=== PATIENT | female | born 1960 | race American Indian/Alaskan Native ===

== ENCOUNTER 2016-07-25 03:16 | Emergency (ER) | payer BC ==
[2016-07-25 05:23] LABS: Alanine Aminotransferase 13 units/L (7-56); Albumin 3.6 g/dL (3.9-5); Albumin/Globulin Ratio 0.8 %; Alkaline Phosphatase 71 units/L (35-129); Bilirubin,Total 0.2 mg/dL (0.1-1.2); Blood Urea Nitrogen 15 mg/dL (7-17); Carbon Dioxide 26 mmol/L (22-30); Chloride 101.4 mmol/L (98-107); Glucose 124 mg/dL (65-100); Potassium 3.6 mmol/L (3.6-5.0); Sodium 140 mmol/L (137-145); Total Protein 8.4 g/dL (6.3-8.2)
[2016-07-25 05:28] LABS: Anion Gap 16 mmol/L
--- NOTE | 2016-07-25 05:28 | Cat Scan Report ---
FINAL REPORT PROCEDURE: CT HEAD/BRAIN WO CON TECHNIQUE: Computerized tomography of the head was performed without contrast material. HISTORY: new onset seizure COMPARISON: 08/21/2011 FINDINGS: Skull and scalp: Normal. Paranasal sinuses: Normal. Ventricles and subarachnoid spaces: There is mild left intraventricular hemorrhage in the posterior horn of the lateral ventricle.. Cerebrum: Acute hemorrhage identified in the medial left temporal lobe, this region measures 18 x 17 millimeters. No midline displacement or mass effect at this time. No other evidence of acute hemorrhage. There are old lacunar infarctions of the basal ganglia regions bilaterally. Mild atrophy is noted. The basilar cisterns are maintained.. Cerebellum and brainstem: No evidence of hemorrhage, acute infarction or mass. Vasculature: Normal. Comments: None. IMPRESSION: Acute hemorrhage involving the medial left temporal lobe, there is intraventricular hemorrhage involving the posterior aspect of the left lateral ventricle. No midline displacement or mass effect at this time. Mild atrophy is noted. Old lacunar infarctions of both basal ganglia are identified. The above critical results are discussed with the patient's ER physician Dr. Mckay at the time of dictation 0424 central standard time on 07/25/2016
--- NOTE | 2016-07-25 05:33 | Emergency Department Report ---
ED Seizure HPI - General Chief Complaint: Seizure Stated Complaint: POSSIBLE SEIZURE Time Seen by Provider: 07/25/16 05:22 Source: patient, family Mode of arrival: Stretcher Limitations: Altered Mental Status - History of Present Illness Initial Comments: 55-year-old female presents to the emergency department via EMS for evaluation of possible seizure. Per the patient's , he was awakened at approximately 3 AM the patient shaking in the bed. Patient was somewhat confused after this. She does not know what happened. At this time, the patient denies any symptoms. She states she feels a little tired. There are no other complaints. MD Complaint: possible seizure -: Sudden, During the night Description of Episode: tonic-clonic movement Witnessed:: Yes Trauma: No Seizure History: none Place: home Possible Precipitating Event: none Associated Symptoms: denies other symptoms Treatments Prior to Arrival: none - Related Data Home Medications Medication Instructions Recorded Confirmed Last Taken No Known Home Medications [No 07/25/16 07/25/16 Unknown Reported Home Medications] Allergies Allergy/AdvReac Type Severity Reaction Status Date / Time Penicillins Allergy Unknown Verified 07/25/16 05:39 ED Review of Systems ROS: Stated complaint: POSSIBLE SEIZURE Other details as noted in HPI Comment: All other systems reviewed and negative Neurological: as per HPI (possible seizure) ED Past Medical Hx - Past Medical History Previous Medical History?: Yes Hx Heart Attack/AMI: Yes Additional medical history: lupus (not sure) - Surgical History Past Surgical History?: No - Family History Family history: no significant - Social History Smoking Status: Current Every Day Smoker Substance Use Type: Alcohol - Medications Home Medications: Home Medications Medication Instructions Recorded Confirmed Last Taken Type No Known Home Medications [No 07/25/16 07/25/16 Unknown History Reported Home Medications] ED Physical Exam - General Limitations: Altered Mental Status General appearance: in no apparent distress, lethargic - Head Head exam: Present: atraumatic, normocephalic - Eye Eye exam: Present: normal appearance, PERRL, EOMI - ENT ENT exam: Present: normal exam, normal orophraynx, mucous membranes moist - Neck Neck exam: Present: normal inspection, full ROM. Absent: tenderness - Respiratory Respiratory exam: Present: normal lung sounds bilaterally. Absent: respiratory distress - Cardiovascular Cardiovascular Exam: Present: regular rate, normal rhythm, normal heart sounds - GI/Abdominal GI/Abdominal exam: Present: soft, normal bowel sounds. Absent: distended, tenderness - Extremities Exam Extremities exam: Present: normal inspection, full ROM. Absent: tenderness - Back Exam Back exam: Present: normal inspection, full ROM. Absent: tenderness - Neurological Exam Neurological exam: Present: alert, oriented X3. Absent: motor sensory deficit - Skin Skin exam: Present: warm, dry, intact ED Course Vital Signs 07/25/16 07/25/16 03:45 05:31 Temperature 98.1 F Pulse Rate 100 H Respiratory 22 22 Rate Blood Pressure 156/100 Blood Pressure 156/100 [Left] O2 Sat by Pulse 100 98 Oximetry - Consultations Consultation #1: 07/25/16 05:51 I have spoken with Dr. Link, neurology at [facility]. He states that he does not have any beds at this time and suggest calling [facility]. Consultation #2: 07/25/16 06:00 I have spoken with Dr. Oliveira, neuro portrait painter at [facility]. Patient has been accepted in transfer. Patient is being given a loading dose of IV Keppra. ED Medical Decision Making - Lab Data Result diagrams: 07/25/16 04:47 07/25/16 04:47 - EKG Data -: EKG Interpreted by [facility] EKG shows normal: sinus rhythm, axis, ST-T waves Rate: normal - EKG Data When compared to previous EKG there are: no significant change Interpretation: unchanged when compared t (09/08/2011), LVH, other (first degree AV block) - Radiology Data Radiology results: report reviewed, image reviewed CT of the brain shows intraparenchymal hemorrhage in the medial aspect of the left temporal lobe with extension into the posterior aspect of the left lateral ventricle. This was discussed with the radiologist. - Differential Diagnosis new-onset seizure, occult infection, electrolyte abnormality, ICH Critical care attestation.: If time is entered above; I have spent that time in minutes in the direct care of this critically ill patient, excluding procedure time. ED Disposition Clinical Impression: Intraparenchymal hemorrhage of brain Disposition: DC/TX SHORT-TERM GEN HOSP INPT Is pt being admited?: No Condition: Stable Time of Disposition: 06:01
[2016-07-25 05:38] LABS: Basophils % (Auto) 0.3 % (0.0-1.8); Eosinophils % (Auto) 0.1 % (0.0-4.3); Hematocrit 37.1 % (30.3-42.9); Hemoglobin 12.5 gm/dl (10.1-14.3); Mean Corpuscular HGB Conc 34 % (30-34); Mean Corpuscular Hemoglobin 31 pg (28-32); Mean Corpuscular Volume 93 fl (79-97); Platelet Count 215 K/mm3 (140-440); Red Blood Count 3.98 M/mm3 (3.65-5.03); Red Cell Distribution Width 12.8 % (13.2-15.2); White Blood Count 7.9 K/mm3 (4.5-11.0)
[2016-07-25] MEDS ORDERED: KEPPRA 1,000 MG/NS 0.75% 100ML 100 ML IV ONE (06:02)
[2016-07-25 06:13] LABS: INR 0.98 (0.87-1.13)
[2016-07-25 06:14] LABS: Partial Thromboplastin Time 23.6 Sec. (24.2-36.6)
[2016-07-25 07:59] LABS: Urine Drugs of Abuse Note Disclamer
[2016-07-25 08:19] VITALS: BP 165/102
--- NOTE | 2016-07-25 08:35 | Admit Criteria Form ---
Admission Criteria Documentation: STROKE: HEMORRHAGIC Clinical Indications for Admission to Inpatient Care (Place 'X' for any and all applicable criteria): Admission is indicated for ANY ONE of the following(1)(2)(3)(4): [X ]I. Acute hemorrhagic (eg, intracerebral) stroke Extended stay beyond goal length of stay may be needed for(1)(2)(6) [ ]a) Surgical intervention (9) [ ]b) Major deficit [ ]c) Increased intracranial pressure [ ]d) Hydrocephalus [ ]e) Seizures [ ]f) Venous thromboembolism [ ]g) Severe electrolyte abnormality (eg, hypernatremia, hyponatremia) [ ]h) Hospital-acquired infection (eg, urinary tract infection, pneumonia) [ ]i) Comorbidities (heart failure, renal failure) The original [facility] content created by [facility] [employer] has been revised. The portions of the content which have been revised are identified through the use of italic text or in bold, and [facility] has neither reviewed nor approved the modified material. All other unmodified content is copyright [facility]. Please see references footnoted in the original [facility] [employer] edition 2016
[2016-07-25 08:38] LABS: Bacteria,Urine 1+ /HPF (Negative); Bilirubin,Urine NEG (Negative); Blood,Urine NEG (Negative); Ketones,Urine NEG (Negative); Leukocyte Esterase,Urine LG (Negative); Mucus,Urine FEW /HPF; Nitrite,Urine NEG (Negative); Urobilinogen,Urine < 2.0 mg/dL (<2.0)
== END 2016-07-25 09:00 | disposition short-term general hospital (02) ==
LOC: ED 03:16
DX: I61.8 Other nontraumatic intracerebral hemorrhage (principal); I25.2 Old myocardial infarction; M32.9 Systemic lupus erythematosus, unspecified; F17.200 Nicotine dependence, unspecified, uncomplicated; Z88.0 Allergy status to penicillin
CPT/HCPCS: 36415; 70450; 80053; 80307; 81001; 85025; 85610; 85730; 93005; 93010; 96365; 99285; G0480; J1953; 80320

== ENCOUNTER 2019-05-26 07:20 | Emergency (ER) | payer BC, MEDICAID ==
--- NOTE | 2019-05-26 08:46 | Emergency Department Report ---
ED N/V/D HPI - General Chief complaint: Nausea/Vomiting/Diarrhea Stated complaint: POSS GI BLEED/N/V Source: patient Mode of arrival: Stretcher Limitations: No Limitations, Physical Limitation - History of Present Illness MD complaint: vomiting -: Gradual, days(s) (3 days) Description of Vomiting: other (brown vomitus) Associated Abdominal Pain: No (denies abdominal pain ) Radiation: none Associated Symptoms: denies other symptoms - Related Data Home Medications Medication Instructions Recorded Confirmed Last Taken Aspirin 81 mg PO DAILY 05/26/19 05/26/19 Unknown AtorvaSTATin 80 mg PO HS 05/26/19 05/26/19 Unknown Docusate Sodium 100 mg PO DAILY 05/26/19 05/26/19 Unknown Pantoprazole 20 mg PO DAILY 05/26/19 05/26/19 Unknown amLODIPine 10 mg PO DAILY 05/26/19 05/26/19 Unknown diphenhydrAMINE 25 mg PO HS 05/26/19 05/26/19 Unknown Previous Rx's Medication Instructions Recorded Last Taken Type Docusate Sodium [Colace] 100 mg PO BID #60 capsule 05/26/19 Unknown Rx Sodium Phosphate,[place]-Dibasic 118 ml RC DAILY #1 enema 05/26/19 Unknown Rx [Fleet Enema] Allergies Allergy/AdvReac Type Severity Reaction Status Date / Time Penicillins Allergy Unknown Verified 07/25/16 05:39 ED Review of Systems ROS: Stated complaint: POSS GI BLEED/N/V Other details as noted in HPI Comment: All other systems reviewed and negative Cardiovascular: denies: chest pain Gastrointestinal: nausea, vomiting. denies: abdominal pain, diarrhea, constipation ED Past Medical Hx - Past Medical History Previous Medical History?: Yes Hx CVA: Yes (left side weakness) Hx Heart Attack/AMI: Yes Additional medical history: lupus (not sure) - Surgical History Past Surgical History?: No - Social History Smoking Status: Never Smoker Substance Use Type: None - Medications Home Medications: Home Medications Medication Instructions Recorded Confirmed Last Taken Type Aspirin 81 mg PO DAILY 05/26/19 05/26/19 Unknown History AtorvaSTATin 80 mg PO HS 05/26/19 05/26/19 Unknown History Docusate Sodium 100 mg PO DAILY 05/26/19 05/26/19 Unknown History Docusate Sodium [Colace] 100 mg PO BID #60 capsule 05/26/19 Unknown Rx Pantoprazole 20 mg PO DAILY 05/26/19 05/26/19 Unknown History Sodium Phosphate,[place]-Dibasic 118 ml RC DAILY #1 enema 05/26/19 Unknown Rx [Fleet Enema] amLODIPine 10 mg PO DAILY 05/26/19 05/26/19 Unknown History diphenhydrAMINE 25 mg PO HS 05/26/19 05/26/19 Unknown History ED Physical Exam - General Limitations: No Limitations, Physical Limitation General appearance: alert, in no apparent distress - Head Head exam: Present: normal inspection - Eye Eye exam: Present: normal appearance. Absent: scleral icterus - ENT ENT exam: Present: mucous membranes dry, other (poor dentition ) - Neck Neck exam: Present: normal inspection - Respiratory Respiratory exam: Present: normal lung sounds bilaterally - Cardiovascular Cardiovascular Exam: Present: regular rate, normal rhythm, normal heart sounds, other (mumur) - GI/Abdominal GI/Abdominal exam: Present: soft, normal bowel sounds. Absent: distended, tenderness, guarding, rebound - Extremities Exam Extremities exam: Present: normal inspection, normal capillary refill. Absent: pedal edema, calf tenderness - Expanded Upper Extremity Exam Left Upper Arm exam: Present: other (left arm weakness) - Back Exam Back exam: Present: normal inspection - Neurological Exam Neurological exam: Present: alert, oriented X3 - Psychiatric Psychiatric exam: Present: normal affect - Skin Skin exam: Present: warm, dry, intact ED Course Vital Signs 05/26/19 05/26/19 07:52 13:20 Temperature 98.7 F Pulse Rate 87 84 Respiratory 16 16 Rate Blood Pressure 145/92 Blood Pressure 142/82 [Left] O2 Sat by Pulse 97 96 Oximetry - Reevaluation(s) Reevaluation #1: 05/26/19 14:15 No vomiting while in ER. No pain, tolerating oral fluids well. ED Medical Decision Making - Lab Data Result diagrams: 05/26/19 08:51 05/26/19 08:51 - Radiology Data Radiology results: report reviewed XR abd 2V TUBES / LINES: None. BOWEL GAS PATTERN: There is moderate to large stool throughout the length of the colon. No evidence for dilated bowel, fluid levels or free air. No pathologic calcifications are detected. ADDITIONAL FINDINGS: No significant additional findings. IMPRESSION: Moderate fecal retention. No acute process identified. - Medical Decision Making This is a 58-year-old female resident [facility]. She reports a 3 day history of vomiting. Vomitus is brown in color. . She denies abdominal pain ,diarrhea ,fever chest pain and sob. 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 GUIAC negative. Given 1 liter NS bolus. No vomiting while in the ER. Able to tolerate oral fluids. Pt reports feeling better after 1 liter of fluid Xray abdomen, moderate stool. Critical care attestation.: If time is entered above; I have spent that time in minutes in the direct care of this critically ill patient, excluding procedure time. ED Disposition Clinical Impression: Constipation Qualifiers: Constipation type: unspecified constipation type Qualified Code(s): K59.00 - Constipation, unspecified Disposition: TO HOME OR SELFCARE Is pt being admited?: No Does the pt Need Aspirin: No Condition: Stable Instructions: Constipation (ED) Additional Instructions: Follow up with PCP in 2-3 days. Increase oral fluids. Take fleets enema x 1. Start Colace 1 tab twice a day. Return to ER for abdominal pain , vomiting and diarrhea. Prescriptions: Docusate Sodium [Colace] 100 mg PO BID #60 capsule Sodium Phosphate,[place]-Dibasic [Fleet Enema] 118 ml RC DAILY #1 enema Referrals: LUCY FUNES MD [Primary Care Provider] - 3-5 Days
--- NOTE | 2019-05-26 09:39 | XRay Report ---
ABDOMEN 2 VIEW(S) INDICATION / CLINICAL INFORMATION: vomiting. COMPARISON: None available. FINDINGS: TUBES / LINES: None. BOWEL GAS PATTERN: There is moderate to large stool throughout the length of the colon. No evidence f or dilated bowel, fluid levels or free air. No pathologic calcifications are detected. ADDITIONAL FINDINGS: No significant additional findings. IMPRESSION: Moderate fecal retention. No acute process identified. Signer Name: Adrián Hastings Jr, MD Signed: 05/26/2019 9:35 AM Workstation Name: [id number]
[2019-05-26 09:43] LABS: Basophils % (Auto) 0.2 % (0.0-1.8); Eosinophils % (Auto) 0.1 % (0.0-4.3); Hematocrit 33.3 % (30.3-42.9); Hemoglobin 11.1 gm/dl (10.1-14.3); Lymphocytes # (Auto) 0.7 K/mm3 (1.2-5.4); Mean Corpuscular HGB Conc 33 % (30-34); Mean Corpuscular Volume 90 fl (79-97); Monocytes # (Auto) 0.4 K/mm3 (0.0-0.8); Monocytes % (Auto) 4.9 % (0.0-7.3); Platelet Count 222 K/mm3 (140-440); Red Blood Count 3.72 M/mm3 (3.65-5.03)
[2019-05-26 09:49] LABS: INR 0.99 (0.87-1.13)
[2019-05-26 09:50] LABS: Partial Thromboplastin Time 23.5 Sec. (24.2-36.6)
[2019-05-26] MEDS ORDERED: SODIUM CHLORIDE 0.9% 1000 ML 1,000 ML IV ONE (09:50)
[2019-05-26 10:33] LABS: Alanine Aminotransferase 21 units/L (7-56); Albumin 4.1 g/dL (3.9-5); BUN/Creatinine Ratio 20; Blood Urea Nitrogen 10 mg/dL (7-17); Calcium 9.7 mg/dL (8.4-10.2); Hemolysis Index 7
[2019-05-26 13:20] VITALS: BP 142/82
[2019-05-26 13:41] LABS: Mucus,Urine 2+ /HPF; RBC,Urine < 1.0 /HPF (0.0-6.0)
[2019-05-26 13:42] LABS: Bilirubin,Urine Negative (Negative); Color,Urine Straw (Yellow)
[2019-05-26 13:43] LABS: Blood,Urine Negative (Negative)
== END 2019-05-26 16:29 | disposition home or self-care (01) ==
LOC: ED 07:20
DX: K59.00 Constipation, unspecified (principal); I25.2 Old myocardial infarction; Z86.73 Personal history of transient ischemic attack (TIA), and cerebral infarction without residual deficits; Z79.899 Other long term (current) drug therapy; Z88.0 Allergy status to penicillin
CPT/HCPCS: 36415; 74019; 80053; 81001; 85025; 85610; 85730; 96360; 99284; J7030

== ENCOUNTER 2019-06-27 18:50 | Emergency (ER) | payer MEDICAID ==
--- NOTE | 2019-06-27 21:51 | Emergency Department Report ---
HPI - General Chief Complaint: Extremity Injury, Upper Time Seen by Provider: 06/27/19 20:19 - HPI HPI: 58-year-old demented female presents to the emergency department by EMS from [facility] with a complaint of a three-day history of left upper arm pain. She denies any trauma or injury. She denies any swelling or skin color change. She denies any numbness or new weakness to that arm. Patient has a past medical history of CVA with some residual left-sided weakness. She denies any headache, chest pain, shortness of breath, fever. She has not taken anything for her symptoms prior to presentation today. ED Past Medical Hx - Past Medical History Previous Medical History?: Yes Hx CVA: Yes (left side weakness) Hx Heart Attack/AMI: Yes Additional medical history: lupus (not sure) - Surgical History Past Surgical History?: No - Social History Smoking Status: Current Every Day Smoker Substance Use Type: None - Medications Home Medications: Home Medications Medication Instructions Recorded Confirmed Last Taken Type Aspirin 81 mg PO DAILY 05/26/19 05/26/19 Unknown History AtorvaSTATin 80 mg PO HS 05/26/19 05/26/19 Unknown History Docusate Sodium 100 mg PO DAILY 05/26/19 05/26/19 Unknown History Docusate Sodium [Colace] 100 mg PO BID #60 capsule 05/26/19 Unknown Rx Pantoprazole 20 mg PO DAILY 05/26/19 05/26/19 Unknown History Sodium Phosphate,[place]-Dibasic 118 ml RC DAILY #1 enema 05/26/19 Unknown Rx [Fleet Enema] amLODIPine 10 mg PO DAILY 05/26/19 05/26/19 Unknown History diphenhydrAMINE 25 mg PO HS 05/26/19 05/26/19 Unknown History ED Review of Systems ROS: Stated complaint: L ARM PAIN Other details as noted in HPI Comment: All other systems reviewed and negative Constitutional: denies: chills, fever Eyes: denies: eye pain, vision change ENT: denies: ear pain, throat pain Respiratory: denies: cough, shortness of breath Cardiovascular: denies: chest pain, palpitations Gastrointestinal: denies: abdominal pain, vomiting Musculoskeletal: arthralgia, myalgia. denies: joint swelling Skin: denies: rash, lesions Neurological: denies: numbness, paresthesias Physical Exam - Physical Exam Vital Signs: Vital Signs 06/27/19 12 19:59 20:40 Temperature 98.5 F 98.7 F Pulse Rate 98 H 100 H Respiratory 15 15 Rate Blood Pressure 138/88 Blood Pressure 151/87 138/88 [Right] O2 Sat by Pulse 100 100 Oximetry Physical Exam: GENERAL: The patient is well-developed well-nourished. HEENT: Normocephalic. Atraumatic. Patient has moist mucous membranes. EYES: Extraocular motions are intact. NECK: Supple. Trachea is midline CHEST/LUNGS: Clear to auscultation. There is no respiratory distress noted. HEART/CARDIOVASCULAR: Regular. There is no tachycardia. ABDOMEN: There is no abdominal distention. SKIN: Skin is warm and dry. NEURO: The patient is awake, alert, and oriented. The patient is cooperative. The patient has no focal neurologic deficits. Normal speech. MUSCULOSKELETAL: There is reproducible tenderness to palpation to the mid left humerus but no obvious deformity. Radial pulse +2 over 4 and capillary refill less than 2 seconds to the affected left upper extremity. ED Course Vital Signs 06/27/19 06/27/19 19:59 20:40 Temperature 98.5 F 98.7 F Pulse Rate 98 H 100 H Respiratory 15 15 Rate Blood Pressure 138/88 Blood Pressure 151/87 138/88 [Right] O2 Sat by Pulse 100 100 Oximetry ED Medical Decision Making - Lab Data Result diagrams: 06/27/19 21:52 06/27/19 21:52 - EKG Data -: EKG Interpreted by Me EKG shows normal: sinus rhythm, axis, intervals (prolonged NM interval), QRS complexes, ST-T waves Rate: normal - EKG Data When compared to previous EKG there are: previous EKG unavailable Interpretation: other (sinus rhythm, rate of 92 bpm, prolonged NM interval) - Radiology Data Radiology results: image reviewed interpreted by me: X-ray of the left humerus does not show any fracture, dislocation, or any other acute process. - Medical Decision Making This patient presents to the emergency department with a 3 day history of some pain to the middle of the left upper arm. No fall or injury. She has neurovascularly intact. The pain is reproducible to palpation. Labs have been unremarkable including CBC, metabolic panel and CK level. Patient also had a negative troponin. EKG does not show any signs of ST elevation ND. She was given a shot of Toradol and upon reevaluation she is feeling improved. She appears safe for discharge home at this time. She has been instructed to follow up with primary care and orthopedist. She will return to the ER for any worsening of her symptoms or any acute distress. - Differential Diagnosis occult fracture, muscle spasm/strain, ND, malignancy Critical Care Time: No Critical care attestation.: If time is entered above; I have spent that time in minutes in the direct care of this critically ill patient, excluding procedure time. ED Disposition Clinical Impression: Left arm pain Disposition: DC- TO HOME OR SELFCARE Is pt being admited?: No Condition: Stable Instructions: Arthralgia (ED) Additional Instructions: Please follow-up with your primary care physician in the next few days. I am giving you a referral for a local orthopedist, Dr. Loera, to follow-up regarding your upper arm pain. Return to the emergency Department with any wo rsening of your symptoms or any acute distress. Referrals: CHERYL HUERTA MD [Referring] - 3-5 Days SUMMER LOERA MD [Staff Physician] - 3-5 Days Time of Disposition: 23:17
[2019-06-27 22:10] LABS: Basophils % (Auto) 0.3 % (0.0-1.8); Eosinophils % (Auto) 0.6 % (0.0-4.3); Hemoglobin 9.8 gm/dl (10.1-14.3); Lymphocytes # (Auto) 1.1 K/mm3 (1.2-5.4); Lymphocytes % (Auto) 13.5 % (13.4-35.0); Mean Corpuscular HGB Conc 33 % (30-34); Mean Corpuscular Volume 90 fl (79-97); Monocytes # (Auto) 0.6 K/mm3 (0.0-0.8); Monocytes % (Auto) 7.3 % (0.0-7.3); Platelet Count 263 K/mm3 (140-440); Red Blood Count 3.33 M/mm3 (3.65-5.03); Red Cell Distribution Width 13.9 % (13.2-15.2)
--- NOTE | 2019-06-27 22:15 | XRay Report ---
LEFT HUMERUS 7 VIEWS INDICATION: left arm pain. COMPARISON: No relevant prior imaging study available. FINDINGS: No significant skeletal abnormality. No soft tissue swelling is seen in the left arm. No significant degenerative changes. IMPRESSION: 1. No acute findings. Signer Name: Ivan Odell MD Signed: 06/27/2019 10:11 PM Workstation Name: [id number]
[2019-06-27 22:24] LABS: BUN/Creatinine Ratio 20; Blood Urea Nitrogen 8 mg/dL (7-17)
[2019-06-27 22:25] LABS: Hemolysis Index 8
[2019-06-27] MEDS ORDERED: KETOROLAC 30 MG/1 ML INJ IM ONE (23:01)
[2019-06-28 03:19] VITALS: BP 114/74
== END 2019-06-28 04:25 | disposition home or self-care (01) ==
LOC: ED 18:50
DX: M79.602 Pain in left arm (principal); I25.2 Old myocardial infarction; F17.200 Nicotine dependence, unspecified, uncomplicated; Z79.899 Other long term (current) drug therapy; Z88.0 Allergy status to penicillin
CPT/HCPCS: 36415; 73060; 80048; 82550; 84484; 85025; 93005; 93010; 96372; 99284; J1885

== ENCOUNTER 2022-02-18 12:18 | Inpatient (IN) | payer MEDICAID ==
--- NOTE | 2022-02-18 13:20 | Emergency Department Report ---
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 Pt is wheelchair bound. No visual or voice changes reported. No other modifying or associated factors reported. - Related Data Home Medications: Home Medications Medication Instructions Recorded Confirmed Last Taken Aspirin 81 mg PO DAILY 05/26/19 05/26/19 Unknown AtorvaSTATin 80 mg PO HS 05/26/19 05/26/19 Unknown Docusate Sodium 100 mg PO DAILY 05/26/19 05/26/19 Unknown Pantoprazole 20 mg PO DAILY 05/26/19 05/26/19 Unknown amLODIPine 10 mg PO DAILY 05/26/19 05/26/19 Unknown Previous Rx's Medication Instructions Recorded Last Taken Type Docusate Sodium [Colace CAP] 100 mg PO BID #60 capsule 05/26/19 Unknown Rx Sodium Phosphate,Bay-Dibasic 118 ml RC DAILY #1 enema 05/26/19 Unknown Rx [Fleet Enema] Allergies/Adverse Reactions: Allergies Allergy/AdvReac Type Severity Reaction Status Date / Time Penicillins Allergy Unknown Verified 07/25/16 05:39 ED Review of Systems ROS: Stated complaint: LEFT LEG AND KNEE PAIN Other details as noted in HPI Comment: All other systems reviewed and negative Neurological: weakness (left lower leg) ED Past Medical Hx - Past Medical History Hx CVA: Yes (left side weakness) Hx Heart Attack/AMI: Yes Hx Congestive Heart Failure: No Hx Diabetes: No Hx Asthma: No Hx COPD: No Additional medical history: lupus (not sure) - Social History Smoking Status: Current Every Day Smoker Substance Use Type: None - Medications Home Medications: Home Medications Medication Instructions Recorded Confirmed Last Taken Type Aspirin 81 mg PO DAILY 05/26/19 05/26/19 Unknown History AtorvaSTATin 80 mg PO HS 05/26/19 05/26/19 Unknown History Docusate Sodium 100 mg PO DAILY 05/26/19 05/26/19 Unknown History Docusate Sodium [Colace CAP] 100 mg PO BID #60 capsule 05/26/19 Unknown Rx Pantoprazole 20 mg PO DAILY 05/26/19 05/26/19 Unknown History Sodium Phosphate,Bay-Dibasic 118 ml RC DAILY #1 enema 05/26/19 Unknown Rx [Fleet Enema] amLODIPine 10 mg PO DAILY 05/26/19 05/26/19 Unknown History ED Neuro Physical Exam - General Limitations: Physical Limitation General appearance: alert, in no apparent distress Suspected Stroke: No - Head Head exam: Present: atraumatic, normal inspection - Eye Eye exam: Present: normal appearance Pupils: Present: normal accommodation - ENT ENT exam: Present: normal exam, normal orophraynx, mucous membranes dry - Neck Neck exam: Present: normal inspection, full ROM. Absent: tenderness - Respiratory Respiratory exam: Present: normal lung sounds bilaterally. Absent: respiratory distress, accessory muscle use - Cardiovascular Cardiovascular Exam: Present: regular rate, normal rhythm, normal heart sounds - GI/Abdominal GI/Abdominal exam: Present: soft, normal bowel sounds. Absent: distended, tenderness - Extremities Exam Extremities exam: Present: other (noted mild degrees of weakness on both upper and lower limb--) - Back Exam Back exam: Absent: tenderness - Neurological Exam Neurological exam: Present: alert, oriented X3 - NIHSS Assessment Interval: Baseline 1a. Level of Consciousness: alert/keenly responsive 1b. LOC Questions: answers both correctly 1c. LOC Commands: performs tasks correctly 2. Best Gaze: normal 3. Visual: no visual loss 4. Facial Palsy: normal symmetrical movement 5b. Motor Arm Right: no drift 5a. Motor Arm Left: drift 6a. Motor Leg Left: drift 6b. Motor Leg Right: no drift 7. Limb Ataxia: absent 8. Sensory: normal 9. Best Language: no aphasia 10. Dysarthria: normal 11. Extinction/Inattention: no abnormality Total Score: 2 Stroke Severity: Minor Stroke - Psychiatric Psychiatric exam: Present: normal affect, normal mood - Skin Skin exam: Present: warm, normal color ED Course Vital Signs 02/18/22 02/18/22 02/18/22 12:18 12:25 12:35 Temperature 98.5 F Pulse Rate 100 H 95 H 95 H Respiratory 18 20 Rate Blood Pressure 138/84 150/91 [Left] O2 Sat by Pulse 100 97 Oximetry 02/18/22 02/18/22 02/18/22 14:54 16:14 18:12 Temperature 98.4 F 98.4 F Pulse Rate 87 74 82 Respiratory 20 20 20 Rate Blood Pressure 134/79 134/76 152/96 [Left] O2 Sat by Pulse 98 98 97 Oximetry - Lab Data Result diagrams: 02/18/22 15:30 02/18/22 15:30 Lab Results 02/18/22 02/18/22 02/18/22 Range/Units 13:52 15:30 15:30 WBC 6.6 (4.5-11.0) K/mm3 RBC 3.84 (3.65-5.03) M/mm3 Hgb 11.9 (10.1-14.3) gm/dl Hct 36.3 (30.3-42.9) % MCV 94 (79-97) fl MCH 31 (28-32) pg MCHC 33 (30-34) % RDW 13.3 (13.2-15.2) % Plt Count 263 (140-440) K/mm3 Lymph % (Auto) 16.5 (13.4-35.0) % Bay % (Auto) 7.4 H (0.0-7.3) % Eos % (Auto) 0.6 (0.0-4.3) % Baso % (Auto) [employer] Lymph # (Auto) 1.1 L (1.2-5.4) K/mm3 Bay # (Auto) 0.5 (0.0-0.8) K/mm3 Eos # (Auto) 0.0 (0.0-0.4) K/mm3 Baso # (Auto) 0.0 (0.0-0.1) K/mm3 Add Manual Diff Complete Total Counted 100 Seg Neutrophils % 75.2 H (40.0-70.0) % Seg Neuts % (Manual) 79.0 H (40.0-70.0) % Band Neutrophils % 0 % Lymphocytes % (Manual) 16.0 (13.4-35.0) % Reactive Lymphs % (Man) 1.0 % Monocytes % (Manual) 4.0 (0.0-7.3) % Eosinophils % (Manual) 0 (0.0-4.3) % Basophils % (Manual) 0 (0.0-1.8) % Metamyelocytes % 0 % Myelocytes % 0 % Promyelocytes % 0 % Blast Cells % 0 % Nucleated RBC % Not Reportable Seg Neutrophils # 4.9 (1.8-7.7) K/mm3 Seg Neutrophils # Man 5.2 (1.8-7.7) K/mm3 Band Neutrophils # 0.0 K/mm3 Lymphocytes # (Manual) 1.1 L (1.2-5.4) K/mm3 Abs React Lymphs (Man) 0.1 K/mm3 Monocytes # (Manual) 0.3 (0.0-0.8) K/mm3 Eosinophils # (Manual) 0.0 (0.0-0.4) K/mm3 Basophils # (Manual) 0.0 (0.0-0.1) K/mm3 Metamyelocytes # 0.0 K/mm3 Myelocytes # 0.0 K/mm3 Promyelocytes # 0.0 K/mm3 Blast Cells # 0.0 K/mm3 WBC Morphology Not Reportable Hypersegmented Neuts Not Reportable Hyposegmented Neuts Not Reportable Hypogranular Neuts Not Reportable Smudge Cells Not Reportable Toxic Granulation Not Reportable Toxic Vacuolation Not Reportable Dohle Bodies Not Reportable Pelger-Huet Anomaly Not Reportable Shahid Rods Not Reportable Platelet Estimate Consistent w auto Clumped Platelets Not Reportable Plt Clumps, EDTA Not Reportable Large Platelets Not Reportable Giant Platelets Not Reportable Platelet Satelliting Not Reportable Plt Morphology Comment Not Reportable RBC Morphology Normal Dimorphic RBCs Not Reportable Polychromasia Not Reportable Hypochromasia Not Reportable Poikilocytosis Not Reportable Anisocytosis Not Reportable Microcytosis Not Reportable Macrocytosis Not Reportable Spherocytes Not Reportable Pappenheimer Bodies Not Reportable Sickle Cells Not Reportable Target Cells Not Reportable Tear Drop Cells Not Reportable Ovalocytes Not Reportable Helmet Cells Not Reportable Ewing-Montier Bodies Not Reportable [place] Rings Not Reportable [place] Cells Not Reportable Bite Cells Not Reportable Crenated Cell Not Reportable Elliptocytes Not Reportable Acanthocytes (Spur) Not Reportable Rouleaux Not Reportable Hemoglobin C Crystals Not Reportable Schistocytes Not Reportable Malaria parasites Not Reportable Jong Bodies Not Reportable Hem Pathologist Commnt No PT 13.3 (12.2-14.9) Sec. INR 0.92 (0.87-1.13) APTT 26.7 (24.2-36.6) Sec. Thrombin Time 17.8 (15.1-19.6) Sec. Sodium (137-145) mmol/L Potassium (3.6-5.0) mmol/L Chloride (98-107) mmol/L Carbon Dioxide (22-30) mmol/L Anion Gap mmol/L BUN (7-17) mg/dL Creatinine (0.6-1.2) mg/dL Estimated GFR ml/min BUN/Creatinine Ratio % Glucose (65-100) mg/dL POC Glucose 87 (70-105) mg/dL Calcium (8.4-10.2) mg/dL Total Bilirubin (0.1-1.2) mg/dL AST (5-40) units/L ALT (7-56) units/L Alkaline Phosphatase (35-129) units/L Total Creatine Kinase (30-135) units/L CK-MB (CK-2) (0.0-4.0) ng/mL CK-MB (CK-2) Rel Index (0-4) Troponin T (0.00-0.029) ng/mL Total Protein (6.3-8.2) g/dL Albumin (3.9-5) g/dL Albumin/Globulin Ratio % 02/18/22 02/18/22 02/18/22 Range/Units 15:30 15:30 15:30 WBC (4.5-11.0) K/mm3 RBC (3.65-5.03) M/mm3 Hgb (10.1-14.3) gm/dl Hct (30.3-42.9) % MCV (79-97) fl MCH (28-32) pg MCHC (30-34) % RDW (13.2-15.2) % Plt Count (140-440) K/mm3 Lymph % (Auto) (13.4-35.0) % Bay % (Auto) (0.0-7.3) % Eos % (Auto) (0.0-4.3) % Baso % (Auto) Lymph # (Auto) (1.2-5.4) K/mm3 Bay # (Auto) (0.0-0.8) K/mm3 Eos # (Auto) (0.0-0.4) K/mm3 Baso # (Auto) (0.0-0.1) K/mm3 Add Manual Diff Total Counted Seg Neutrophils % (40.0-70.0) % Seg Neuts % (Manual) (40.0-70.0) % Band Neutrophils % % Lymphocytes % (Manual) (13.4-35.0) % Reactive Lymphs % (Man) % Monocytes % (Manual) (0.0-7.3) % Eosinophils % (Manual) (0.0-4.3) % Basophils % (Manual) (0.0-1.8) % Metamyelocytes % % Myelocytes % % Promyelocytes % % Blast Cells % % Nucleated RBC % Seg Neutrophils # (1.8-7.7) K/mm3 Seg Neutrophils # Man (1.8-7.7) K/mm3 Band Neutrophils # K/mm3 Lymphocytes # (Manual) (1.2-5.4) K/mm3 Abs React Lymphs (Man) K/mm3 Monocytes # (Manual) (0.0-0.8) K/mm3 Eosinophils # (Manual) (0.0-0.4) K/mm3 Basophils # (Manual) (0.0-0.1) K/mm3 Metamyelocytes # K/mm3 Myelocytes # K/mm3 Promyelocytes # K/mm3 Blast Cells # K/mm3 WBC Morphology TNR Hypersegmented Neuts Hyposegmented Neuts Hypogranular Neuts Smudge Cells Toxic Granulation Toxic Vacuolation Dohle Bodies Pelger-Huet Anomaly Shahid Rods Platelet Estimate Clumped Platelets Plt Clumps, EDTA Large Platelets Giant Platelets Platelet Satelliting Plt Morphology Comment RBC Morphology Dimorphic RBCs Polychromasia Hypochromasia Poikilocytosis Anisocytosis Microcytosis Macrocytosis Spherocytes Pappenheimer Bodies Sickle Cells Target Cells Tear Drop Cells Ovalocytes Helmet Cells Ewing-Montier Bodies [place] Rings [place] Cells Bite Cells Crenated Cell Elliptocytes Acanthocytes (Spur) Rouleaux Hemoglobin C Crystals Schistocytes Malaria parasites Jong Bodies Hem Pathologist Commnt PT (12.2-14.9) Sec. INR (0.87-1.13) APTT (24.2-36.6) Sec. Thrombin Time (15.1-19.6) Sec. Sodium 142 (137-145) mmol/L Potassium 4.0 (3.6-5.0) mmol/L Chloride 104.4 (98-107) mmol/L Carbon Dioxide 26 (22-30) mmol/L Anion Gap 16 mmol/L BUN 11 (7-17) mg/dL Creatinine 0.4 L (0.6-1.2) mg/dL Estimated GFR > 60 ml/min BUN/Creatinine Ratio 28 % Glucose 86 (65-100) mg/dL POC Glucose (70-105) mg/dL Calcium 9.7 (8.4-10.2) mg/dL Total Bilirubin 0.20 (0.1-1.2) mg/dL AST 31 (5-40) units/L ALT 33 (7-56) units/L Alkaline Phosphatase 105 (35-129) units/L Total Creatine Kinase 231 H (30-135) units/L CK-MB (CK-2) 3.6 (0.0-4.0) ng/mL CK-MB (CK-2) Rel Index 1.5 (0-4) Troponin T < 0.010 (0.00-0.029) ng/mL Total Protein 8.9 H (6.3-8.2) g/dL Albumin 4.0 (3.9-5) g/dL Albumin/Globulin Ratio 0.8 % - Radiology Data FINDINGS: BRAIN PARENCHYMA: Small area of irregular mixed attenuation within the left cerebellar hemisphere, best seen on coronal image 50, measuring 1.5 cm. No significant mass effect. No midline shift. Severe confluent areas of hypoattenuation involving the periventricular and subcortical white matter, compatible with severe chronic small vessel ischemic changes. Small remote lacunar infarcts in bilateral basal ganglia with remote infarct in the right gangliocapsular region. VENTRICULAR SYSTEM/EXTRA-AXIAL SPACES: Age-related cerebral atrophy. No extra- axial fluid collection. ORBITS: Normal as visualized. SKELETAL SYSTEM/SOFT TISSUES: Normal bones and soft tissues. PARANASAL SINUSES/MASTOID AIR CELLS: No significant abnormality. ADDITIONAL FINDINGS: None. IMPRESSION: 1. Small area of irregular mixed attenuation in the left cerebellar hemisphere. This may reflect an area of recent infarct with petechial hemorrhage. This could also reflect intracranial lesion. Recommend correlation with MRI. 2. Severe chronic small vessel ischemic changes. No other acute findings FINDINGS: CTA HEAD: Intracranial vertebral arteries: No significant abnormality. Basilar artery: No significant abnormality. Posterior cerebral arteries: No significant abnormality. Intracranial internal carotid arteries: No significant abnormality. Anterior cerebral arteries: No significant abnormality. Middle cerebral arteries: No significant abnormality. Dural venous sinuses:Not optimally opacified. No significant abnormality. Additional findings: None. IMPRESSION: 1. No significant abnormality. CTA neck also noted with no abnormality -- - Medical Decision Making Here with possible stroke-with history of-CVA with left-sided residual weakn ess--unsure if this is patient's baseline--noted with very mild weakness on both left upper and lower limb--we will go ahead and get a CT scan of the brain to rule out any new intracranial abnormality-- Noted with questionable lesion as resulted below 1. Small area of irregular mixed attenuation in the left cerebellar hemisphere. This may reflect an area of recent infarct with petechial hemorrhage. This could also reflect intracranial lesion. Recommend correlation with MRI. 2. Severe chronic small vessel ischemic changes. No other acute findings I called and spoke with Dr Harvey who suggested getting CTA neck and brain and have patient admitted for full neuro workup -- I called and spoke Dr Boykin who accept pt for further evaluation and treatment Critical care attestation.: If time is entered above; I have spent that time in minutes in the direct care of this critically ill patient, excluding procedure time. ED Disposition Clinical Impression: Weakness of left leg CVA (cerebrovascular accident) Qualifiers: CVA mechanism: unspecified Qualified Code(s): I63.9 - Cerebral infarction, unspecified Disposition: 09 ADMITTED INPATIENT Is pt being admited?: Yes Does the pt Need Aspirin: No Condition: Stable Referrals: SHARRON RAMIREZ MD [Primary Care Provider] - 3-5 Days Time of Disposition: 18:58
--- NOTE | 2022-02-18 15:27 | Cat Scan Report ---
CT HEAD WITHOUT CONTRAST INDICATION / CLINICAL INFORMATION: Stroke symptoms. TECHNIQUE: All CT scans at this location are performed using CT dose reduction for ALARA by means of automated exposure control. COMPARISON: None available. FINDINGS: BRAIN PARENCHYMA: Small area of irregular mixed attenuation within the left cerebellar hemisphere, be st seen on coronal image 50, measuring 1.5 cm. No significant mass effect. No midline shift. Severe c onfluent areas of hypoattenuation involving the periventricular and subcortical white matter, compati ble with severe chronic small vessel ischemic changes. Small remote lacunar infarcts in bilateral bas al ganglia with remote infarct in the right gangliocapsular region. VENTRICULAR SYSTEM/EXTRA-AXIAL SPACES: Age-related cerebral atrophy. No extra-axial fluid collection. ORBITS: Normal as visualized. SKELETAL SYSTEM/SOFT TISSUES: Normal bones and soft tissues. PARANASAL SINUSES/MASTOID AIR CELLS: No significant abnormality. ADDITIONAL FINDINGS: None. IMPRESSION: 1. Small area of irregular mixed attenuation in the left cerebellar hemisphere. This may reflect an a parul of recent infarct with petechial hemorrhage. This could also reflect intracranial lesion. Recomme nd correlation with MRI. 2. Severe chronic small vessel ischemic changes. No other acute findings Is were discussed with Dr. El by phone on 02/18/2022 at 2:23 PM Signer Name: Josué Harvey MD Signed: 02/18/2022 3:23 PM Workstation Name: [id number]
--- NOTE | 2022-02-18 15:51 | Consultation ---
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 brought in by EMS with left lower leg inability to raise off the bed..." # Scores Time of exam and NIHSS (): 02/18/2022, 15:32 Level of Consciousness 1a: [0] = Alert; keenly responsive LOC Questions 1b: [2] = Answers neither correctly LOC Commands 1c: [0] = Performs both tasks correctly Best Gaze 2: [0] = Normal Visual 3: [0] = No visual loss Facial Palsy 4: [1] = Minor paralysis Motor Arm Left 5a: [0] = No drift Motor Arm Right 5b: [0] = No drift Motor Leg Left 6a: [2] = Some effort against gravity Motor Leg Right 6b: [2] = Some effort against gravity Limb Ataxia 7: [0] = Absent Sensory 8: [0] = Normal Best Language 9: [0] = No aphasia Dysarthria 10: [0] = Normal Extinction and Inattention 11: [0] = No abnormality NIHSS Total: 7 Modified Poinsett Scale (mRS) pre-stroke: [4] = Moderately severe disability...unable to walk... Modified Poinsett Scale total: 4 VAN Screening: Negative # Exam Mental Status: awake follows commands confused Language: dysarthria Cranial Nerves: left facial droop Mild nasolabial fold asymmetry # PMH-FH-SH Past Medical History: stroke Wheelchair bound at baseline Social History: smoker Medications: aspirin lipid lowering agent Allergies: penicillin # Data Glucose: Pending Time Head CT personally read by me ( Time): 02/18/2022, 15:[address]: hemorrhage per radiologist read "...Small area of irregular mixed attenuation in the left cerebellar hemisphere. This may reflect an area of recent infarct with petechial hemorrhage. This could also reflect intracranial lesion..." # Assessment Impression: Weakness Abnormal head CT, concern for potential hemorrhage versus lesion; worsening left leg weakness, stroke versus recrudescence # Plan Thrombolytic/Intervention: NOT IV Thrombolysis or IA Intervention candidate Thrombolytic Exclusion (< 3 hour window): time of onset unclear Thrombolytic Exclusion: Abnormal imaging with concern for potential hemorrhage versus mass per Radiology report Labs: CBC comprehensive metabolic panel ESR hemoglobin A1c lipid panel troponin TSH urine drug screen ua Infectious work-up Imaging: (urgency: STAT): CT Angiogram Head and CT Angiogram Neck AND call back with results if abnormal Imaging: (urgency: routine): MRI Brain with AND without contrast Therapy/Evaluation: NPO until swallow evaluation PT/OT evaluation Medication: Given concern for potential hemorrhage (rule-out), would temporally hold aspirin until brain MRI is completed; continue other home medications pending diagnostic results Other: If patient has any neurological deterioration please call me back immediately telemetry monitoring would not pursue stroke work-up if MRI is negative I have discussed my recommendations with the referring provider Counseled tobacco cessation Disposition: admit # Demographics First Name: Yohana Last Name: Janine Facility: [facility] Medications and Allergies Allergies Allergy/AdvReac Type Severity Reaction Status Date / Time Penicillins Allergy Unknown Verified 07/25/16 05:39 Home Medications Medication Instructions Recorded Confirmed Last Taken Type Aspirin 81 mg PO DAILY 05/26/19 05/26/19 Unknown History AtorvaSTATin 80 mg PO HS 05/26/19 05/26/19 Unknown History Docusate Sodium 100 mg PO DAILY 05/26/19 05/26/19 Unknown History Docusate Sodium [Colace CAP] 100 mg PO BID #60 capsule 05/26/19 Unknown Rx Pantoprazole 20 mg PO DAILY 05/26/19 05/26/19 Unknown History Sodium Phosphate,Castro-Dibasic 118 ml RC DAILY #1 enema 05/26/19 Unknown Rx [Fleet Enema] amLODIPine 10 mg PO DAILY 05/26/19 05/26/19 Unknown History Physical Examination - Vital Signs Vital Signs: Vital Signs Pulse Resp BP Pulse Ox 100 H 18 138/84 100 02/18/22 12:18 02/18/22 12:18 02/18/22 12:18 02/18/22 12:18
[2022-02-18 15:52] LABS: Hematocrit 36.3 % (30.3-42.9); Hemoglobin 11.9 gm/dl (10.1-14.3); Mean Corpuscular HGB Conc 33 % (30-34); Mean Corpuscular Volume 94 fl (79-97); Platelet Count 263 K/mm3 (140-440); Red Blood Count 3.84 M/mm3 (3.65-5.03); Red Cell Distribution Width 13.3 % (13.2-15.2)
[2022-02-18 16:15] LABS: Alanine Aminotransferase 33 units/L (7-56); Blood Urea Nitrogen 11 mg/dL (7-17); Calcium 9.7 mg/dL (8.4-10.2); Hemolysis Index 14
[2022-02-18 16:16] LABS: BUN/Creatinine Ratio 28; Creatine Kinase MB 3.6 ng/mL (0.0-4.0)
[2022-02-18 16:21] LABS: INR 0.92 (0.87-1.13)
[2022-02-18 16:22] LABS: Partial Thromboplastin Time 26.7 Sec. (24.2-36.6); Thrombin Time 17.8 Sec. (15.1-19.6)
[2022-02-18 16:24] LABS: Eosinophils % (Auto) 0.6 % (0.0-4.3); Lymphocytes # (Auto) 1.1 K/mm3 (1.2-5.4); Lymphocytes % (Auto) 16.5 % (13.4-35.0); Monocytes # (Auto) 0.5 K/mm3 (0.0-0.8); Monocytes % (Auto) 7.4 % (0.0-7.3)
[2022-02-18 17:04] LABS: Basophils % (Manual) 0 % (0.0-1.8); Eosinophils % (Manual) 0 % (0.0-4.3); Total Cells Counted 100
[2022-02-18 17:05] LABS: Platelet Estimate Consistent w Auto; RBC Morphology Normal
--- NOTE | 2022-02-18 17:39 | Cat Scan Report ---
CTA NECK WITH CONTRAST 02/18/2022 INDICATION / CLINICAL INFORMATION: stroke. No additional information COMPARISON: None. TECHNIQUE: Routine CTA of the neck is performed. 3-D/MIP reformats were postprocessed. Percentage st enosis is determined by direct quantitative measurements of diseased internal carotid artery diameter compared with normal distal internal carotid artery reference segments or by criteria similar to [place] CET where applicable. All CT scans at this location are performed using CT dose reduction for ALARA b y means of automated exposure control. CONTRAST: 100 ml of Omnipaque 300 FINDINGS: Carotid bifurcations: No evidence of carotid bifurcation stenosis Carotid arteries: No significant abnormality. Cervical vertebral arteries: No significant abnormality. Aortic arch: No significant abnormality. None. IMPRESSION: No significant abnormality. Signer Name: Carlos Randle MD Signed: 02/18/2022 5:34 PM Workstation Name: [id number]
--- NOTE | 2022-02-18 17:40 | Cat Scan Report ---
CTA HEAD WITH CONTRAST 02/18/2022 HISTORY: stroke. COMPARISON: None. TECHNIQUE: All CT scans at this location are performed using CT dose reduction for ALARA by means of automated exposure control.. 3-D/MIP reformats postprocessed. Percentage stenosis is determined by d irect quantitative measurements of diseased internal carotid artery diameter compared with normal dis [place] internal carotid artery reference segments or by criteria similar to NASCET where applicable. CONTRAST: 100 ml of Omnipaque 300 FINDINGS: CTA HEAD: Intracranial vertebral arteries: No significant abnormality. Basilar artery: No significant abnormality. Posterior cerebral arteries: No significant abnormality. Intracranial internal carotid arteries: No significant abnormality. Anterior cerebral arteries: No significant abnormality. Middle cerebral arteries: No significant abnormality. Dural venous sinuses:Not optimally opacified. No significant abnormality. Additional findings: None. IMPRESSION: 1. No significant abnormality. Signer Name: Carlos Randle MD Signed: 02/18/2022 5:36 PM Workstation Name: [id number]
--- NOTE | 2022-02-18 19:03 | History and Physical Report ---
History of Present Illness Chief complaint: Her leg is weak today, and thats new History of present illness: 61 YO Female Sn[facility] Facility Resident with Vascular Dementia, Cerebral Atherosclerosis, HTN, GERD, HLD, CVA with LHP on Antiplatelet therapy, Debility presents ED for evaluation. Patient has diminished cognition and is unable to provide history. Patient history provided by EMS staff, ED staff, as well as shelter facility staff. As per staff the patient experienced increased confusion and weakness today. EMS was notified and upon arrival the patient was found to have a presumed new focal neurologic deficit to the left lower extremity. A code stroke was called and the patient was transported to [facility] for further care and evaluation of the aforementioned symptoms. The patient was se en and evaluated in the emergency department. All lab and imaging studies reviewed. Patient found to have new focal neurologic deficit consistent with CVA. Patient admitted to medical floor and initiated on CVA protocol due to increased risk of worsening symptoms and for medical stabilization. No reports of fever, chills, chest pain, palpitation, productive cough, skin rash, trauma, recent contact, known exposure to COVID-19. Patient has diminished cognition at time of my evaluation and is unable to provide further history but has a positive gag reflex and is able to protect her airway without difficulty. Prior admission on 10/08/2021 reviewed. All medication listed at time of admission has been reconciled. Advanced care planning conducted in ED. Past History Past Medical History: GERD, hypertension, hyperlipidemia, stroke, other (See HPI) Past Surgical History: No surgical history, Other (Reviewed) Social history: single. denies: smoking, alcohol abuse, prescription drug abuse Family history: diabetes, hypertension Medications and Allergies Allergies Allergy/AdvReac Type Severity Reaction Status Date / Time Penicillins Allergy Unknown Verified 07/25/16 05:39 Home Medications Medication Instructions Recorded Confirmed Last Taken Type Aspirin 81 mg PO DAILY 05/26/19 05/26/19 Unknown History AtorvaSTATin 80 mg PO HS 05/26/19 05/26/19 Unknown History Docusate Sodium 100 mg PO DAILY 05/26/19 05/26/19 Unknown History Docusate Sodium [Colace CAP] 100 mg PO BID #60 capsule 05/26/19 Unknown Rx Pantoprazole 20 mg PO DAILY 05/26/19 05/26/19 Unknown History Sodium Phosphate,Rush-Dibasic 118 ml RC DAILY #1 enema 05/26/19 Unknown Rx [Fleet Enema] amLODIPine 10 mg PO DAILY 05/26/19 05/26/19 Unknown History Review of Systems ROS unobtainable: due to mental status Exam - Constitutional Vitals: Temp Pulse Resp BP Pulse Ox 98.4 F 82 20 152/96 97 02/18/22 18:12 02/18/22 18:12 02/18/22 18:12 02/18/22 18:12 02/18/22 18:12 General appearance: Present: mild distress - EENT Eyes: Present: PERRL ENT: clear oral mucosa, hearing decreased - Neck Neck: Present: supple, normal ROM - Respiratory Respiratory effort: normal Respiratory: bilateral: diminished - Cardiovascular Heart Sounds: Present: S1 & S2. Absent: rub, click - Extremities Extremities: pulses symmetrical, No edema Peripheral Pulses: within normal limits - Abdominal General gastrointestinal: Present: soft, non-tender, non-distended, normal bowel sounds Female genitourinary: Present: normal - Integumentary Integumentary: Present: clear, dry - Musculoskeletal Musculoskeletal: left sided weakness - Psychiatric Psychiatric: no appropriate mood/affect, no intact judgment & insight, no memory intact - Neurologic Neurologic: CNII-XII intact, no focal deficits, no moves all extremities, no gait normal HEART Score - HEART Score Troponin: Troponin T < 0.010 ng/mL (0.00-0.029) 02/18/22 15:30 Results - Labs CBC & Chem 7: 02/18/22 15:30 02/18/22 15:30 Labs: Abnormal lab results 02/18/22 02/18/22 02/18/22 Range/Units 15:30 15:30 15:30 Rush % (Auto) 7.4 H (0.0-7.3) % Lymph # (Auto) 1.1 L (1.2-5.4) K/mm3 Seg Neutrophils % 75.2 H (40.0-70.0) % Seg Neuts % (Manual) 79.0 H (40.0-70.0) % Lymphocytes # (Manual) 1.1 L (1.2-5.4) K/mm3 Creatinine 0.4 L (0.6-1.2) mg/dL Total Creatine Kinase 231 H (30-135) units/L Total Protein 8.9 H (6.3-8.2) g/dL Assessment and Plan - Patient Problems (1) CVA (cerebral vascular accident) Current Visit: Yes Status: Chronic Qualifiers: CVA mechanism: unspecified Qualified Code(s): I63.9 - Cerebral infarction, unspecified Plan to address problem: CVA protocol: CT head, neuro check, physical therapy consulted, outpatient therapy consulted, speech therapy consulted, lipid panel, statin therapy, antiplatelet therapy, telemetry neurology consulted. (2) Left hemiparesis Current Visit: Yes Status: Acute Plan to address problem: Physical therapy consulted, supportive care. (3) Vascular dementia Current Visit: Yes Status: Acute Qualifiers: Dementia behavioral disturbance: without behavioral disturbance Qualified Code(s): F01.50 - Vascular dementia without behavioral disturbance Plan to address problem: Verbal prompting, verbal redirection, benzodiazepine therapy as clinically indicated. (4) Cerebral atherosclerosis Current Visit: Yes Status: Acute Plan to address problem: Risk factor reduction, supportive care. Antiplatelet therapy as clinically indicated. (5) Hypertension Current Visit: Yes Status: Acute Qualifiers: Hypertension type: primary hypertension Qualified Code(s): I10 - Essential (primary) hypertension Plan to address problem: Monitor blood pressure every shift, continue medical management, permissive hypertension overnight. (6) GERD (gastroesophageal reflux disease) Current Visit: Yes Status: Acute Qualifiers: Esophagitis presence: without esophagitis Qualified Code(s): K21.9 - Gastro-esophageal reflux disease without esophagitis Plan to address problem: PPI therapy, supportive care (7) Hyperlipidemia Current Visit: Yes Status: Acute Qualifiers: Hyperlipidemia type: mixed hyperlipidemia Qualified Code(s): E78.2 - Mixed hyperlipidemia Plan to address problem: Statin therapy, supportive care. Risk factor reduction, low-cholesterol diet. (8) DVT prophylaxis Current Visit: Yes Status: Acute Plan to address problem: SCD to bilateral lower extremities while in bed (9) Advance care planning Current Visit: Yes Status: Acute Plan to address problem: Disease education done, care plan discussed, diagnoses discussed, prognosis discussed, +30 minutes. (10) Preventative health care Current Visit: Yes Status: Acute Plan to address problem: Skin ancillary staff counseled regarding safety precautions fall precautions, outpatient follow-up with primary care physician for all age and risk factor appropriate screening tests +30 minutes.
[2022-02-18] MEDS ORDERED: PROMETHAZINE 25 MG RECT SUPP PR PRN (19:09)
[2022-02-18] MEDS ORDERED: METOCLOPRAMIDE 10 MG TAB PO PRN (19:09)
[2022-02-18] MEDS ORDERED: ALBUTEROL 2.5 MG/3 ML NEBU IH PRN (19:09)
[2022-02-18] MEDS ORDERED: ONDANSETRON 4 MG/2 ML INJ IV PRN (19:09)
[2022-02-18] MEDS ORDERED: MAGNESIUM HYDROXIDE (MOM) ORAL LIQD UDC PO PRN (19:09)
[2022-02-18] MEDS ORDERED: ACETAMINOPHEN 325 MG TAB PO PRN (19:09)
[2022-02-18] MEDS ORDERED: MORPHINE 2 MG/1 ML INJ IV PRN (19:09)
[2022-02-18] MEDS ORDERED: oxyCODONE /ACETAMINOPHEN 5-325MG TAB PO PRN (19:09)
[2022-02-19 09:15] LABS: Color,Urine Yellow (Yellow)
[2022-02-19 09:17] LABS: Mucus,Urine FEW /HPF; WBC,Urine < 1.0 /HPF (0.0-6.0)
--- NOTE | 2022-02-19 09:25 | Progress Note ---
Assessment and Plan Assessment and plan: 61 YO Female Cust[facility]ial Facility Resident with Vascular Dementia, Cerebral Atherosclerosis, HTN, GERD, HLD, CVA with LHP on Antiplatelet therapy, Debility presents ED for evaluation of increased confusion and weakness on the day of admission at SNF. EMS was notified and upon arrival the patient was found to have a presumed new focal neurologic deficit to the left lower extremity. A code stroke was called and the patient was transported to [facility] for further care. Patient admitted to medical floor and initiated on CVA protocol due to increased risk of worsening symptoms and for medical stabilization. Acute CVA Left hemiparesis Vascular dementia Cerebral atherosclerosis Hypertension GERD Hyperlipidemia 02/19/2022. Continue aspirin and Lipitor for secondary prevention. Carotid Dopp lers and echocardiogram ordered, awaiting results. PT/OT/ST evaluations. MRI of the brain will be ordered for further evaluation. History Interval history: No new issues overnight Hospitalist Physical - Constitutional Vitals: Temp Pulse Resp BP Pulse Ox 98.0 F 80 16 149/83 98 02/19/22 08:00 02/19/22 08:00 02/19/22 08:00 02/19/22 08:00 02/19/22 08:00 General appearance: Present: mild distress - EENT Eyes: Present: PERRL, EOM intact ENT: hearing intact, clear oral mucosa, dentition normal - Neck Neck: Present: supple, normal ROM - Respiratory Respiratory effort: normal Respiratory: bilateral: CTA - Cardiovascular Rhythm: regular Heart Sounds: Present: S1 & S2. Absent: gallop, rub - Extremities Extremities: no ischemia, No edema, Full ROM - Abdominal General gastrointestinal: soft, non-tender, non-distended, normal bowel sounds - Integumentary Integumentary: Present: clear, warm, dry - Neurologic Neurologic: CNII-XII intact, moves all extremities HEART Score - HEART Score Troponin: Troponin T < 0.010 ng/mL (0.00-0.029) 02/18/22 15:30 Results - Labs CBC & Chem 7: 02/18/22 15:30 02/18/22 15:30 Labs: Laboratory Last Values WBC 6.6 K/mm3 (4.5-11.0) 02/18/22 15:30 RBC 3.84 M/mm3 (3.65-5.03) 02/18/22 15:30 Hgb 11.9 gm/dl (10.1-14.3) 02/18/22 15:30 Hct 36.3 % (30.3-42.9) 02/18/22 15:30 MCV 94 fl (79-97) 02/18/22 15:30 MCH 31 pg (28-32) 02/18/22 15:30 MCHC 33 % (30-34) 02/18/22 15:30 RDW 13.3 % (13.2-15.2) 02/18/22 15:30 Plt Count 263 K/mm3 (140-440) 02/18/22 15:30 Lymph % (Auto) 16.5 % (13.4-35.0) 02/18/22 15:30 Dunn % (Auto) 7.4 % (0.0-7.3) H 02/18/22 15:30 Eos % (Auto) 0.6 % (0.0-4.3) 02/18/22 15:30 Baso % (Auto) Blacksmith Helper 02/18/22 15:30 Lymph # (Auto) 1.1 K/mm3 (1.2-5.4) L 02/18/22 15:30 Dunn # (Auto) 0.5 K/mm3 (0.0-0.8) 02/18/22 15:30 Eos # (Auto) 0.0 K/mm3 (0.0-0.4) 02/18/22 15:30 Baso # (Auto) 0.0 K/mm3 (0.0-0.1) 02/18/22 15:30 Add Manual Diff Complete 02/18/22 15:30 Total Counted 100 02/18/22 15:30 Seg Neutrophils % 75.2 % (40.0-70.0) H 02/18/22 15:30 Seg Neuts % (Manual) 79.0 % (40.0-70.0) H 02/18/22 15:30 Band Neutrophils % 0 % 02/18/22 15:30 Lymphocytes % (Manual) 16.0 % (13.4-35.0) 02/18/22 15:30 Reactive Lymphs % (Man) 1.0 % 02/18/22 15:30 Monocytes % (Manual) 4.0 % (0.0-7.3) 02/18/22 15:30 Eosinophils % (Manual) 0 % (0.0-4.3) 02/18/22 15:30 Basophils % (Manual) 0 % (0.0-1.8) 02/18/22 15:30 Metamyelocytes % 0 % 02/18/22 15:30 Myelocytes % 0 % 02/18/22 15:30 Promyelocytes % 0 % 02/18/22 15:30 Blast Cells % 0 % 02/18/22 15:30 Nucleated RBC % Not Reportable 02/18/22 15:30 Seg Neutrophils # 4.9 K/mm3 (1.8-7.7) 02/18/22 15:30 Seg Neutrophils # Man 5.2 K/mm3 (1.8-7.7) 02/18/22 15:30 Band Neutrophils # 0.0 K/mm3 02/18/22 15:30 Lymphocytes # (Manual) 1.1 K/mm3 (1.2-5.4) L 02/18/22 15:30 Abs React Lymphs (Man) 0.1 K/mm3 02/18/22 15:30 Monocytes # (Manual) 0.3 K/mm3 (0.0-0.8) 02/18/22 15:30 Eosinophils # (Manual) 0.0 K/mm3 (0.0-0.4) 02/18/22 15:30 Basophils # (Manual) 0.0 K/mm3 (0.0-0.1) 02/18/22 15:30 Metamyelocytes # 0.0 K/mm3 02/18/22 15:30 Myelocytes # 0.0 K/mm3 02/18/22 15:30 Promyelocytes # 0.0 K/mm3 02/18/22 15:30 Blast Cells # 0.0 K/mm3 02/18/22 15:30 WBC Morphology Not Reportable 02/18/22 15:30 WBC Morphology TNR 02/18/22 15:30 Hypersegmented Neuts Not Reportable 02/18/22 15:30 Hyposegmented Neuts Not Reportable 02/18/22 15:30 Hypogranular Neuts Not Reportable 02/18/22 15:30 Smudge Cells Not Reportable 02/18/22 15:30 Toxic Granulation Not Reportable 02/18/22 15:30 Toxic Vacuolation Not Reportable 02/18/22 15:30 Dohle Bodies Not Reportable 02/18/22 15:30 Pelger-Huet Anomaly Not Reportable 02/18/22 15:30 Shahid Rods Not Reportable 02/18/22 15:30 Platelet Estimate Consistent w auto 02/18/22 15:30 Clumped Platelets Not Reportable 02/18/22 15:30 Plt Clumps, EDTA Not Reportable 02/18/22 15:30 Large Platelets Not Reportable 02/18/22 15:30 Giant Platelets Not Reportable 02/18/22 15:30 Platelet Satelliting Not Reportable 02/18/22 15:30 Plt Morphology Comment Not Reportable 02/18/22 15:30 RBC Morphology Normal 02/18/22 15:30 Dimorphic RBCs Not Reportable 02/18/22 15:30 Polychromasia Not Reportable 02/18/22 15:30 Hypochromasia Not Reportable 02/18/22 15:30 Poikilocytosis Not Reportable 02/18/22 15:30 Anisocytosis Not Reportable 02/18/22 15:30 Microcytosis Not Reportable 02/18/22 15:30 Macrocytosis Not Reportable 02/18/22 15:30 Spherocytes Not Reportable 02/18/22 15:30 Pappenheimer Bodies Not Reportable 02/18/22 15:30 Sickle Cells Not Reportable 02/18/22 15:30 Target Cells Not Reportable 02/18/22 15:30 Tear Drop Cells Not Reportable 02/18/22 15:30 Ovalocytes Not Reportable 02/18/22 15:30 Helmet Cells Not Reportable 02/18/22 15:30 Ewing-Larrabee Bodies Not Reportable 02/18/22 15:30 Edmonds Rings Not Reportable 02/18/22 15:30 Kirti Cells Not Reportable 02/18/22 15:30 Bite Cells Not Reportable 02/18/22 15:30 Crenated Cell Not Reportable 02/18/22 15:30 Elliptocytes Not Reportable 02/18/22 15:30 Acanthocytes (Spur) Not Reportable 02/18/22 15:30 Rouleaux Not Reportable 02/18/22 15:30 Hemoglobin C Crystals Not Reportable 02/18/22 15:30 Schistocytes Not Reportable 02/18/22 15:30 Malaria parasites Not Reportable 02/18/22 15:30 Jong Bodies Not Reportable 02/18/22 15:30 Hem Pathologist Commnt No 02/18/22 15:30 PT 13.3 Sec. (12.2-14.9) 02/18/22 15:30 INR 0.92 (0.87-1.13) 02/18/22 15:30 APTT 26.7 Sec. (24.2-36.6) 02/18/22 15:30 Thrombin Time 17.8 Sec. (15.1-19.6) 02/18/22 15:30 Sodium 142 mmol/L (137-145) 02/18/22 15:30 Potassium 4.0 mmol/L (3.6-5.0) 02/18/22 15:30 Chloride 104.4 mmol/L (98-107) 02/18/22 15:30 Carbon Dioxide 26 mmol/L (22-30) 02/18/22 15:30 Anion Gap 16 mmol/L 02/18/22 15:30 BUN 11 mg/dL (7-17) 02/18/22 15:30 Creatinine 0.4 mg/dL (0.6-1.2) L 02/18/22 15:30 Estimated GFR > 60 ml/min 02/18/22 15:30 BUN/Creatinine Ratio 28 % 02/18/22 15:30 Glucose 86 mg/dL (65-100) 02/18/22 15:30 POC Glucose 87 mg/dL (70-105) 02/18/22 13:52 Calcium 9.7 mg/dL (8.4-10.2) 02/18/22 15:30 Total Bilirubin 0.20 mg/dL (0.1-1.2) 02/18/22 15:30 AST 31 units/L (5-40) 02/18/22 15:30 ALT 33 units/L (7-56) 02/18/22 15:30 Alkaline Phosphatase 105 units/L (35-129) 02/18/22 15:30 Total Creatine Kinase 231 units/L (30-135) H 02/18/22 15:30 CK-MB (CK-2) 3.6 ng/mL (0.0-4.0) 02/18/22 15:30 CK-MB (CK-2) Rel Index 1.5 (0-4) 02/18/22 15:30 Troponin T < 0.010 ng/mL (0.00-0.029) 02/18/22 15:30 Total Protein 8.9 g/dL (6.3-8.2) H 02/18/22 15:30 Albumin 4.0 g/dL (3.9-5) 02/18/22 15:30 Albumin/Globulin Ratio 0.8 % 02/18/22 15:30 Urine Color Yellow (Yellow) 02/18/22 08:58 Urine Turbidity Clear (Clear) 02/18/22 08:58 Specific [place] (Man) 1.010 (1.003-1.030) 02/18/22 08:58 Ur Protein (Man) Negative mg/dL (Negative) 02/18/22 08:58 Ur Ketones (Man) Negative (Negative) 02/18/22 08:58 Urine Bilirubin (Man) Negative (Negative) 02/18/22 08:58 Urine RBC (Auto) 1.0 /HPF (0.0-6.0) 02/18/22 08:58 Urine RBC (Manual) Negative (Negative) 02/18/22 08:58 Angel/IV: Voiding Method External Female Catheter Active Medications - Current Medications Current Medications: Generic Name Dose Route Start Last Admin Trade Name Freq PRN Reason Stop Dose Admin Acetaminophen 650 mg 02/18/22 19:09 Acetaminophen 325 Mg Tab PO Q4H PRN Pain, Mild (1-3) Albuterol 2.5 mg 02/18/22 19:09 Albuterol 2.5 Mg/3 Ml Nebu IH Q3HRT PRN Shortness Of Breath Aspirin 325 mg 02/19/22 10:00 Aspirin 325 Mg Tab PO QDAY YANELIS Atorvastatin Calcium 40 mg 02/18/22 22:00 02/18/22 22:00 Atorvastatin 40 Mg Tab PO Not Given QHS YANELIS Bisacodyl 10 mg 02/18/22 19:09 Bisacodyl 10 Mg Rect Supp MA QDAY PRN Constipation Magnesium Hydroxide 30 ml 02/18/22 19:09 Magnesium Hydroxide (Mom) Oral Liqd Udc PO Q4H PRN Constipation Metoclopramide HCl 10 mg 02/18/22 19:09 Metoclopramide 10 Mg Tab PO Q6H PRN Nausea And Vomiting Morphine Sulfate 1 mg 02/18/22 19:09 Morphine 2 Mg/1 Ml Inj IV Q14H PRN Pain , Severe (7-10) Ondansetron HCl 4 mg 02/18/22 19:09 Ondansetron 4 Mg/2 Ml Inj IV Q8H PRN Nausea And Vomiting Oxycodone/Acetaminophen 1 tab 02/18/22 19:09 Oxycodone /Acetaminophen 5-325mg Tab PO Q16H PRN Pain, Moderate (4-6) Promethazine HCl 25 mg 02/18/22 19:09 Promethazine 25 Mg Rect Supp MA Q6H PRN Nausea And Vomiting Sodium Chloride 10 ml 02/18/22 19:09 Sodium Chloride 0.9% 10 Ml Flush Syringe IV PRN PRN LINE FLUSH
[2022-02-19 09:37] LABS: Amphetamine Screen,Urine Negative; Benzodiazepines Screen,Urine Negative; Cannabinoid Screen,Urine Negative; Cocaine Screen,Urine Negative; Methadone Screen,Urine Negative; Opiate Screen,Urine Negative
[2022-02-19] MEDS: ASPIRIN 325 MG TAB PO SCH (10:39)
--- NOTE | 2022-02-20 10:58 | Progress Note ---
Assessment and Plan Assessment and plan: 61 YO Female Care Home Facility Resident with Vascular Dementia, Cerebral Atherosclerosis, HTN, GERD, HLD, CVA with LHP on Antiplatelet therapy, Debility presents ED for evaluation of increased confusion and weakness on the day of admission at SNF. EMS was notified and upon arrival the patient was found to have a presumed new focal neurologic deficit to the left lower extremity. A code stroke was called and the patient was transported to [facility] for further care. Patient admitted to medical floor and initiated on CVA protocol due to increased risk of worsening symptoms and for medical stabilization. Acute CVA Left hemiparesis Vascular dementia Cerebral atherosclerosis Hypertension GERD Hyperlipidemia 02/19/2022. Continue aspirin and Lipitor for secondary prevention. Carotid Dopp lers and echocardiogram ordered, awaiting results. PT/OT/ST evaluations. MRI of the brain will be ordered for further evaluation. 02/20/2022. Await neurology consultation. Continue aspirin and Lipitor for secondary prevention. Carotid Dopplers and echocardiogram ordered, awaiting results. PT/OT/ST evaluations. MRI of the brain will be ordered for further evaluation. History Interval history: No new issues overnight Hospitalist Physical - Constitutional Vitals: Temp Pulse Resp BP Pulse Ox 98.0 F 78 18 140/77 100 02/20/22 07:47 02/20/22 07:47 02/20/22 07:47 02/20/22 07:47 02/20/22 09:51 General appearance: Present: no acute distress - EENT Eyes: Present: PERRL, EOM intact ENT: hearing intact, clear oral mucosa, dentition normal - Neck Neck: Present: supple, normal ROM - Respiratory Respiratory effort: normal Respiratory: bilateral: CTA - Cardiovascular Rhythm: regular Heart Sounds: Present: S1 & S2. Absent: gallop, rub - Extremities Extremities: no ischemia, No edema, Full ROM - Abdominal General gastrointestinal: soft, non-tender, non-distended, normal bowel sounds - Integumentary Integumentary: Present: clear, warm, dry - Neurologic Neurologic: CNII-XII intact, moves all extremities HEART Score - HEART Score Troponin: Troponin T < 0.010 ng/mL (0.00-0.029) 02/18/22 15:30 Results - Labs CBC & Chem 7: 02/18/22 15:30 02/18/22 15:30 Labs: Laboratory Last Values WBC 6.6 K/mm3 (4.5-11.0) 02/18/22 15:30 RBC 3.84 M/mm3 (3.65-5.03) 02/18/22 15:30 Hgb 11.9 gm/dl (10.1-14.3) 02/18/22 15:30 Hct 36.3 % (30.3-42.9) 02/18/22 15:30 MCV 94 fl (79-97) 02/18/22 15:30 MCH 31 pg (28-32) 02/18/22 15:30 MCHC 33 % (30-34) 02/18/22 15:30 RDW 13.3 % (13.2-15.2) 02/18/22 15:30 Plt Count 263 K/mm3 (140-440) 02/18/22 15:30 Lymph % (Auto) 16.5 % (13.4-35.0) 02/18/22 15:30 [place] % (Auto) 7.4 % (0.0-7.3) H 02/18/22 15:30 Eos % (Auto) 0.6 % (0.0-4.3) 02/18/22 15:30 Baso % (Auto) Day Trader 02/18/22 15:30 Lymph # (Auto) 1.1 K/mm3 (1.2-5.4) L 02/18/22 15:30 [place] # (Auto) 0.5 K/mm3 (0.0-0.8) 02/18/22 15:30 Eos # (Auto) 0.0 K/mm3 (0.0-0.4) 02/18/22 15:30 Baso # (Auto) 0.0 K/mm3 (0.0-0.1) 02/18/22 15:30 Add Manual Diff Complete 02/18/22 15:30 Total Counted 100 02/18/22 15:30 Seg Neutrophils % 75.2 % (40.0-70.0) H 02/18/22 15:30 Seg Neuts % (Manual) 79.0 % (40.0-70.0) H 02/18/22 15:30 Band Neutrophils % 0 % 02/18/22 15:30 Lymphocytes % (Manual) 16.0 % (13.4-35.0) 02/18/22 15:30 Reactive Lymphs % (Man) 1.0 % 02/18/22 15:30 Monocytes % (Manual) 4.0 % (0.0-7.3) 02/18/22 15:30 Eosinophils % (Manual) 0 % (0.0-4.3) 02/18/22 15:30 Basophils % (Manual) 0 % (0.0-1.8) 02/18/22 15:30 Metamyelocytes % 0 % 02/18/22 15:30 Myelocytes % 0 % 02/18/22 15:30 Promyelocytes % 0 % 02/18/22 15:30 Blast Cells % 0 % 02/18/22 15:30 Nucleated RBC % Not Reportable 02/18/22 15:30 Seg Neutrophils # 4.9 K/mm3 (1.8-7.7) 02/18/22 15:30 Seg Neutrophils # Man 5.2 K/mm3 (1.8-7.7) 02/18/22 15:30 Band Neutrophils # 0.0 K/mm3 02/18/22 15:30 Lymphocytes # (Manual) 1.1 K/mm3 (1.2-5.4) L 02/18/22 15:30 Abs React Lymphs (Man) 0.1 K/mm3 02/18/22 15:30 Monocytes # (Manual) 0.3 K/mm3 (0.0-0.8) 02/18/22 15:30 Eosinophils # (Manual) 0.0 K/mm3 (0.0-0.4) 02/18/22 15:30 Basophils # (Manual) 0.0 K/mm3 (0.0-0.1) 02/18/22 15:30 Metamyelocytes # 0.0 K/mm3 02/18/22 15:30 Myelocytes # 0.0 K/mm3 02/18/22 15:30 Promyelocytes # 0.0 K/mm3 02/18/22 15:30 Blast Cells # 0.0 K/mm3 02/18/22 15:30 WBC Morphology Not Reportable 02/18/22 15:30 WBC Morphology TNR 02/18/22 15:30 Hypersegmented Neuts Not Reportable 02/18/22 15:30 Hyposegmented Neuts Not Reportable 02/18/22 15:30 Hypogranular Neuts Not Reportable 02/18/22 15:30 Smudge Cells Not Reportable 02/18/22 15:30 Toxic Granulation Not Reportable 02/18/22 15:30 Toxic Vacuolation Not Reportable 02/18/22 15:30 Dohle Bodies Not Reportable 02/18/22 15:30 Pelger-Huet Anomaly Not Reportable 02/18/22 15:30 Shahid Rods Not Reportable 02/18/22 15:30 Platelet Estimate Consistent w auto 02/18/22 15:30 Clumped Platelets Not Reportable 02/18/22 15:30 Plt Clumps, EDTA Not Reportable 02/18/22 15:30 Large Platelets Not Reportable 02/18/22 15:30 Giant Platelets Not Reportable 02/18/22 15:30 Platelet Satelliting Not Reportable 02/18/22 15:30 Plt Morphology Comment Not Reportable 02/18/22 15:30 RBC Morphology Normal 02/18/22 15:30 Dimorphic RBCs Not Reportable 02/18/22 15:30 Polychromasia Not Reportable 02/18/22 15:30 Hypochromasia Not Reportable 02/18/22 15:30 Poikilocytosis Not Reportable 02/18/22 15:30 Anisocytosis Not Reportable 02/18/22 15:30 Microcytosis Not Reportable 02/18/22 15:30 Macrocytosis Not Reportable 02/18/22 15:30 Spherocytes Not Reportable 02/18/22 15:30 Pappenheimer Bodies Not Reportable 02/18/22 15:30 Sickle Cells Not Reportable 02/18/22 15:30 Target Cells Not Reportable 02/18/22 15:30 Tear Drop Cells Not Reportable 02/18/22 15:30 Ovalocytes Not Reportable 02/18/22 15:30 Helmet Cells Not Reportable 02/18/22 15:30 [place] Bodies Not Reportable 02/18/22 15:30 [place] Rings Not Reportable 02/18/22 15:30 Kirti Cells Not Reportable 02/18/22 15:30 Bite Cells Not Reportable 02/18/22 15:30 Crenated Cell Not Reportable 02/18/22 15:30 Elliptocytes Not Reportable 02/18/22 15:30 Acanthocytes (Spur) Not Reportable 02/18/22 15:30 Rouleaux Not Reportable 02/18/22 15:30 Hemoglobin C Crystals Not Reportable 02/18/22 15:30 Schistocytes Not Reportable 02/18/22 15:30 Malaria parasites Not Reportable 02/18/22 15:30 Jong Bodies Not Reportable 02/18/22 15:30 Hem Pathologist Commnt No 02/18/22 15:30 PT 13.3 Sec. (12.2-14.9) 02/18/22 15:30 INR 0.92 (0.87-1.13) 02/18/22 15:30 APTT 26.7 Sec. (24.2-36.6) 02/18/22 15:30 Thrombin Time 17.8 Sec. (15.1-19.6) 02/18/22 15:30 Sodium 142 mmol/L (137-145) 02/18/22 15:30 Potassium 4.0 mmol/L (3.6-5.0) 02/18/22 15:30 Chloride 104.4 mmol/L (98-107) 02/18/22 15:30 Carbon Dioxide 26 mmol/L (22-30) 02/18/22 15:30 Anion Gap 16 mmol/L 02/18/22 15:30 BUN 11 mg/dL (7-17) 02/18/22 15:30 Creatinine 0.4 mg/dL (0.6-1.2) L 02/18/22 15:30 Estimated GFR > 60 ml/min 02/18/22 15:30 BUN/Creatinine Ratio 28 % 02/18/22 15:30 Glucose 86 mg/dL (65-100) 02/18/22 15:30 POC Glucose 87 mg/dL (70-105) 02/18/22 13:52 Calcium 9.7 mg/dL (8.4-10.2) 02/18/22 15:30 Total Bilirubin 0.20 mg/dL (0.1-1.2) 02/18/22 15:30 AST 31 units/L (5-40) 02/18/22 15:30 ALT 33 units/L (7-56) 02/18/22 15:30 Alkaline Phosphatase 105 units/L (35-129) 02/18/22 15:30 Total Creatine Kinase 231 units/L (30-135) H 02/18/22 15:30 CK-MB (CK-2) 3.6 ng/mL (0.0-4.0) 02/18/22 15:30 CK-MB (CK-2) Rel Index 1.5 (0-4) 02/18/22 15:30 Troponin T < 0.010 ng/mL (0.00-0.029) 02/18/22 15:30 Total Protein 8.9 g/dL (6.3-8.2) H 02/18/22 15:30 Albumin 4.0 g/dL (3.9-5) 02/18/22 15:30 Albumin/Globulin Ratio 0.8 % 02/18/22 15:30 Urine Color Yellow (Yellow) 02/18/22 08:58 Urine Turbidity Clear (Clear) 02/18/22 08:58 Specific [place] (Man) 1.010 (1.003-1.030) 02/18/22 08:58 Ur Protein (Man) Negative mg/dL (Negative) 02/18/22 08:58 Ur Ketones (Man) Negative (Negative) 02/18/22 08:58 Urine Bilirubin (Man) Negative (Negative) 02/18/22 08:58 Urine WBC (Auto) < 1.0 /HPF (0.0-6.0) 02/18/22 08:58 Urine RBC (Auto) 1.0 /HPF (0.0-6.0) 02/18/22 08:58 Urine RBC (Manual) Negative (Negative) 02/18/22 08:58 Urine Mucus Few /HPF 02/18/22 08:58 Urine Opiates Screen Negative 02/18/22 08:58 Urine Methadone Screen Negative 02/18/22 08:58 Ur Barbiturates Screen Negative 02/18/22 08:58 Ur Phencyclidine Scrn Negative 02/18/22 08:58 Ur Amphetamines Screen Negative 02/18/22 08:58 U Benzodiazepines Scrn Negative 02/18/22 08:58 Urine Cocaine Screen Negative 02/18/22 08:58 U Marijuana (THC) Screen Negative 02/18/22 08:58 Drugs of Abuse Note Disclamer 02/18/22 08:58 Angel/IV: Voiding Method External Female Catheter Active Medications - Current Medications Current Medications: Generic Name Dose Route Start Last Admin Trade Name Freq PRN Reason Stop Dose Admin Acetaminophen 650 mg 02/18/22 19:09 Acetaminophen 325 Mg Tab PO Q4H PRN Pain, Mild (1-3) Albuterol 2.5 mg 02/18/22 19:09 Albuterol 2.5 Mg/3 Ml Nebu IH Q3HRT PRN Shortness Of Breath Aspirin 325 mg 02/19/22 10:00 02/19/22 10:39 Aspirin 325 Mg Tab PO 325 mg QDAY YANELIS Administration Atorvastatin Calcium 40 mg 02/18/22 22:00 02/19/22 22:35 Atorvastatin 40 Mg Tab PO 40 mg QHS YANELIS Administration Bisacodyl 10 mg 02/18/22 19:09 Bisacodyl 10 Mg Rect Supp [place] QDAY PRN Constipation Magnesium Hydroxide 30 ml 02/18/22 19:09 Magnesium Hydroxide (Mom) Oral Liqd Udc PO Q4H PRN Constipation Metoclopramide HCl 10 mg 02/18/22 19:09 Metoclopramide 10 Mg Tab PO Q6H PRN Nausea And Vomiting Morphine Sulfate 1 mg 02/18/22 19:09 Morphine 2 Mg/1 Ml Inj IV Q14H PRN Pain , Severe (7-10) Ondansetron HCl 4 mg 02/18/22 19:09 Ondansetron 4 Mg/2 Ml Inj IV Q8H PRN Nausea And Vomiting Oxycodone/Acetaminophen 1 tab 02/18/22 19:09 Oxycodone /Acetaminophen 5-325mg Tab PO Q16H PRN Pain, Moderate (4-6) Promethazine HCl 25 mg 02/18/22 19:09 Promethazine 25 Mg Rect Supp [place] Q6H PRN Nausea And Vomiting Sodium Chloride 10 ml 02/18/22 19:09 02/19/22 22:35 Sodium Chloride 0.9% 10 Ml Flush Syringe IV 10 ml PRN PRN Administration LINE FLUSH Nutrition/Malnutrition Assess - Dietary Evaluation Nutrition/Malnutrition Findings: Nutrition Notes Start: 02/19/22 10:55 Theresa: Status: Active Protocol: Document 02/19/22 10:55 STEPHANIE (Rec: 02/19/22 11:17 STEPHANIE [id number]) Nutrition Notes Need for Assessment generated from: field hauler,MST Initial or Follow up Assessment Current Diagnosis Hypertension,Stroke, Hyperlipidemia Other Pertinent Diagnosis L-Hemiparesis, GERD, Debility, Vascular Dementia, Cerebral Atherosclerosis. Current Diet NPO. Labs/Tests 02/19: Crea 0.4. Pertinent Medications 02/19: Nutritionally unremarkable. 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 Weight Status Appropriate Subjective/Other Information RD consult for risk of malnutrition assessment. Pt currently on NPO. I strongly recommend TOLL RELIEF OPERATOR assessment before advancing to PO diet. Pt is on Room Air, O2 sturation @ 99%, according to Physical Assessment History notes. Pt presents L-Hemiparesis, according to History & Physical notes. Pt is an SNF resident, according to History & Physical notes. Pt shows no signs of concern for risk of malnutrition at the time, according to Physical Assessment History notes. Percent of energy/protein needs met: Pt currently on NPO. Burn Absent Trauma Absent GI Symptoms None Food Allergy No Skin Integrity/Comment Assessment WNL. Current % PO Other Minimum of two criteria No Fluid Accumulation N/A Reduced Newspaper Peddler Strength N/A (non-severe) Protein-Calorie Malnutrition N\A #1 Nutrition Diagnosis No nutrition diagnosis at this time Is patient on ventilator? No Is Patient Ambulatory and/or Out of Bed No REE-([facility]-confined to bed) 1427.100 Calculation Used for Recommendations [facility] Additional Notes Protein: 0.8-1 g/Kg ABW; 51-64 g/day. Fluids: 1 ml/Kcal, or as per MD. Nutrition Intervention Change Diet Order: When pertinent advance to PO diet following TOLL RELIEF OPERATOR recommendations. Follow-Up By: 02/21/22 Additional Comments TOLL RELIEF OPERATOR recommendations. When pertient, Start monitoring food tolerance, %PO intake of meals, and BM.
[2022-02-20] MEDS: ASPIRIN 325 MG TAB PO SCH (12:48)
--- NOTE | 2022-02-20 16:52 | Consultation ---
History of Present Illness Consult date: 02/20/22 Reason for Consult: CVA Chief complaint: "Weak, all over" History of present illness: 61 yo right-handed female with hypertension, hyperlipidemia, stroke with residual left-sided weakness, vascular dementia, gerd, who presented initially with noted confusion and left-sided worsening weakness, specifically, left leg weakness. Patient was evaluated by telestroke physician. Currently, the patient notes she feels weak all over her body. Notes otherwise she is okay. She notes no acute neck/back pain. Past History Past Medical History: GERD, hypertension, hyperlipidemia, stroke, other (See HPI) Past Surgical History: No surgical history, Other (Reviewed) Social history: single. denies: smoking, alcohol abuse, prescription drug abuse Family history: diabetes, hypertension Medications and Allergies Allergies Allergy/AdvReac Type Severity Reaction Status Date / Time Penicillins Allergy Unknown Verified 07/25/16 05:39 Home Medications Medication Instructions Recorded Confirmed Last Taken Type Aspirin 81 mg PO DAILY 05/26/19 02/20/22 Unknown History AtorvaSTATin 80 mg PO HS 05/26/19 02/20/22 Unknown History Docusate Sodium 100 mg PO DAILY 05/26/19 02/20/22 Unknown History Docusate Sodium [Colace CAP] 100 mg PO BID #60 capsule 05/26/19 02/20/22 Unknown Rx Pantoprazole 20 mg PO DAILY 05/26/19 02/20/22 Unknown History Sodium Phosphate,[place]-Dibasic 118 ml RC DAILY #1 enema 05/26/19 02/20/22 Unknown Rx [Fleet Enema] amLODIPine 10 mg PO DAILY 05/26/19 05/26/19 Unknown History Active Meds: Active Medications Acetaminophen (Acetaminophen 325 Mg Tab) 650 mg PO Q4H PRN PRN Reason: Pain, Mild (1-3) Albuterol (Albuterol 2.5 Mg/3 Ml Nebu) 2.5 mg IH Q3HRT PRN PRN Reason: Shortness Of Breath Aspirin (Aspirin 325 Mg Tab) 325 mg PO QDAY [facility] Last Admin: 02/20/22 12:48 Dose: 325 mg Atorvastatin Calcium (Atorvastatin 40 Mg Tab) 40 mg PO QHS [facility] Last Admin: 02/19/22 22:35 Dose: 40 mg Bisacodyl (Bisacodyl 10 Mg Rect Supp) 10 mg [place] QDAY PRN PRN Reason: Constipation Magnesium Hydroxide (Magnesium Hydroxide (Mom) Oral Liqd Udc) 30 ml PO Q4H PRN PRN Reason: Constipation Metoclopramide HCl (Metoclopramide 10 Mg Tab) 10 mg PO Q6H PRN PRN Reason: Nausea And Vomiting Morphine Sulfate (Morphine 2 Mg/1 Ml Inj) 1 mg IV Q14H PRN PRN Reason: Pain , Severe (7-10) Ondansetron HCl (Ondansetron 4 Mg/2 Ml Inj) 4 mg IV Q8H PRN PRN Reason: Nausea And Vomiting Oxycodone/Acetaminophen (Oxycodone /Acetaminophen 5-325mg Tab) 1 tab PO Q16H PRN PRN Reason: Pain, Moderate (4-6) Promethazine HCl (Promethazine 25 Mg Rect Supp) 25 mg [place] Q6H PRN PRN Reason: Nausea And Vomiting Sodium Chloride (Sodium Chloride 0.9% 10 Ml Flush Syringe) 10 ml IV PRN PRN PRN Reason: LINE FLUSH Last Admin: 02/19/22 22:35 Dose: 10 ml Review of Systems All systems: negative (as per hpi;) Physical Examination - Vital Signs Vital Signs: Vital Signs Pulse Resp BP Pulse Ox 100 H 18 138/84 100 02/18/22 12:18 02/18/22 12:18 02/18/22 12:18 02/18/22 12:18 - Physical Exam Narrative exam: Gen: nad, well-nourished; Head: normocephalic; Eyes: no gaze deviation; no ptosis; ENT: normal vocalization; CVS: warm and well-perfused; Pulm: no respiratory distress; GI: appears non-distended; Ext: no cyanosis appreciated at distal extremities; Skin: no acute rash at distal extremities; Heme: no pathologic ecchymosis appreciated at distal extremities; Neuro: alert, oriented to name, not age, not month, not year, mild dysarthria, no aphasia, CN 2 - PERRL, visual cano grossly intact, CN 3, 4, 6 - EOMI, CN 5 - facial sensation symmetric to light touch, CN 7 - facial movement decreased on the right, CN 8 - hearing grossly intact, CN 9, 10 - uvula midline, CN 11 decreased left shoulder movement, CN 12 - tongue midline; Motor - at least 3/5 at bilateral upper extremties; at least 3/5 at proximal LLE, 0/5 at distal LLE; at least 4-/5 at RLE; Sensory - light touch symmetric, Cerebellar - fnf /hts de creased on the left due to weakness, Gait - deferred secondary to fall risk; NIHSS (1a.) Level of Consciousness:0 (1b.) LOC Questions:2 (1c.) LOC Commands:0 (2.) Best Gaze:0 (3.) Visual:0 (4.) Facial Palsy:1 (5a.) Motor Arm, Left:0 (5b.) Motor Arm, Right:0 (6a.) Motor Leg, Left:1 (6b.) Motor Leg, Right:0 (7.) Limb Ataxia:0 (8.) Sensory:0 (9.) Best Language:0 (10.) Dysarthria: 1 (11.) Extinction and Inattention:0 NIHSS Total Score: 5 Results - Laboratory Findings CBC and BMP: 02/18/22 15:30 02/18/22 15:30 Abnormal Lab Findings: Abnormal Labs 02/18/22 02/18/22 02/18/22 15:30 15:30 15:30 [place] % (Auto) 7.4 H Lymph # (Auto) 1.1 L Seg Neutrophils % 75.2 H Seg Neuts % (Manual) 79.0 H Lymphocytes # (Manual) 1.1 L Creatinine 0.4 L Total Creatine Kinase 231 H Total Protein 8.9 H Assessment and Plan 61 yo right-handed female with hypertension, hyperlipidemia, stroke with residual left-sided weakness, vascular dementia, gerd, who presented initially with noted confusion and left-sided worsening weakness, specifically, left leg weakness. 1. Acute Ischemic Stroke (vs recrudescence; small vessel disease) - ASA 325 mg PO qday, MRI Brain w/o contrast, CTA Head/Neck w/ & w/o contrast, TTEcho, CUS, confirm LDL/TSH/Covid-19; telemetry, NIHSS q4 hours; SBP goal 160-200 mmHg and DBP 80-100 mmHg for 48 more hours. Statin therapy for a goal LDL of 70, when patient passes swallow evaluation. PT/OT/ST/Swallow evaluation. Long-term risk- factor modification, including a strict diet/exercise regimen for secondary stroke prophylaxis. Stroke education prior to discharge if MR Brain confirms an acute infarction. 2. Hypertension - goal SBP 160-200 mmHg and DBP 80-100 mmHg for 48 more hours. 3. Hyperlipidemia - goal LDL of 70 w/ statin therapy if no contraindications. 4. Dysarthria / Dysphagia - st / swallow evaluation/monitoring. 5. Acute on Chronic Left-sided weakness - pt/ot evaluation/monitoring. 6. Unsteady Gait - pt/ot evaluation/monitoring. 7. Memory Loss / Dementia - confirm b12, tsh, thiamine, rpr; outpatient f/u w/ cognitive neurology. 8. Malnutrition - workup / management per primary team. 9. Generalized Weakness - confirm b12, tsh, ck. 10. Fall precautions. Juan C Cruz MD Neurology [id number]
--- NOTE | 2022-02-20 17:02 | Vascular Lab Report ---
DUPLEX DOPPLER ULTRASOUND CAROTID, BILATERAL INDICATION / CLINICAL INFORMATION: stroke. COMPARISON: CTA neck 02/18/2022. FINDINGS: RIGHT CAROTID: Minimal atherosclerotic plaque. - PLAQUE ESTIMATE (%): < 50% - CCA velocity: 52 cm/sec. - ICA peak systolic velocity: 75 cm/sec. - ICA/CCA PSV Ratio: Less than 2. Right Vertebral Artery: Antegrade flow. LEFT CAROTID: Minimal atherosclerotic plaque. - PLAQUE ESTIMATE (%): < 50% - CCA velocity: 61 cm/sec. - ICA peak systolic velocity: 78 cm/sec. - ICA/CCA PSV Ratio: Less than 2. Left Vertebral Artery: Antegrade flow. IMPRESSION: 1. Right Internal Carotid Artery: Less than 50% diameter stenosis. 2. Left Internal Carotid Artery: Less than 50% diameter stenosis. Velocity criteria are extrapolated from diameter data as defined by the Society of Radiologists in Ul trasound Consensus Conference, Radiology 2003; 229;340-346. NO STENOSIS (NORMAL) - Plaque = none; ICA PSV < 125 cm/sec; ICA/CCA PSV Ratio < 2.0 <50% STENOSIS - Plaque < 50%; ICA PSV < 125 cm/sec; ICA/CCA PSV Ratio < 2.0 50-69% STENOSIS - Plaque > 50%; ICA PSV = 125-230 cm/sec; ICA/CCA PSV Ratio = 2.0-4.0 >70% BUT <100% STENOSIS - Plaque > 50%; ICA PSV > 230 cm/sec; ICA/CCA PSV Ratio > 4.0 NEAR OCCLUSION - Plaque = visible lumen; ICA PSV = high/low/none; ICA/CCA PSV Ratio = variable TOTAL OCCLUSION - Plaque = no lumen; ICA PSV = none; ICA/CCA PSV Ratio = N/A Scribed by: Doris Amor RDMS, RVT, RMSKS Scribed: 02/20/2022 3:26 PM I have reviewed the images, agree with this report, and edited this report as needed. Signer Name: Ayan Cantor MD Signed: 02/20/2022 4:58 PM Workstation Name: [id number]
[2022-02-21] MEDS: ASPIRIN 325 MG TAB PO SCH (09:21)
[2022-02-21 10:13] LABS: Chol/HDL Ratio 2.39 %
--- NOTE | 2022-02-21 13:48 | Electrocardiograph Report ---
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
--- NOTE | 2022-02-21 14:31 | Progress Note ---
Assessment and Plan Assessment and plan: 61 YO Female [facility] Resident with Vascular Dementia, Cerebral Atherosclerosis, HTN, GERD, HLD, CVA with LHP on Antiplatelet therapy, Debility presents ED for evaluation of increased confusion and weakness on the day of admission at [facility]. EMS was notified and upon arrival the patient was found to have a presumed new focal neurologic deficit to the left lower extremity. A code stroke was called and the patient was transported to [facility] for further care. Patient admitted to medical floor and initiated on CVA protocol due to increased risk of worsening symptoms and for medical stabilization. #Possible acute ischemic CVA #Left hemiparesis #Vascular dementia #Cerebral atherosclerosis #Hypertension #GERD #Hyperlipidemia #Advanced care planning -Disease education conducted, care plan discussed, diagnoses discussed, prognosis discussed, and patient acknowledges understanding with care plan -Time: +30 min #Discharge planning - Patient is pending MRI brain - Case management has been made aware. - Discharge is tentatively 24 hours. 02/19/2022. Continue aspirin and Lipitor for secondary prevention. Carotid Dopplers and echocardiogram ordered, awaiting results. PT/OT/ST evaluations. MRI of the brain will be ordered for further evaluation. 02/20/2022. Await neurology consultation. Continue aspirin and Lipitor for secondary prevention. Carotid Dopplers and echocardiogram ordered, awaiting results. PT/OT/ST evaluations. MRI of the brain will be ordered for further evaluation. 02/21/2022. Pending MRI brain to evaluate for possible acute ischemic CVA. PT and OT recommending the patient return to her facility once medically cleared for discharge. Unremarkable carotid dopplers and TTE. Disposition Plan: Continue medical management Total Time Spent with Patient (Minutes): 45 minutes History Interval history: No acute events overnight. Hospitalist Physical - Constitutional Vitals: Temp Pulse Resp BP Pulse Ox 98.2 F 49 L 18 133/74 91 02/21/22 12:12 02/21/22 12:12 02/21/22 12:12 02/21/22 12:12 02/21/22 12:12 General appearance: Present: no acute distress, well-nourished - EENT Eyes: Present: PERRL, EOM intact ENT: hearing intact, clear oral mucosa, dentition normal - Neck Neck: Present: supple, normal ROM - Respiratory Respiratory effort: normal Respiratory: bilateral: CTA - Cardiovascular Rhythm: regular Heart Sounds: Present: S1 & S2 - Extremities Extremities: no ischemia, pulses intact, pulses symmetrical, No edema, normal temperature, normal color Peripheral Pulses: within normal limits - Abdominal General gastrointestinal: soft, non-tender, non-distended, normal bowel sounds - Integumentary Integumentary: Present: clear, warm, dry - Psychiatric Psychiatric: cooperative - Neurologic Neurologic: CNII-XII intact, moves all extremities - Allied Health Allied health notes reviewed: nursing HEART Score - HEART Score Troponin: Troponin T < 0.010 ng/mL (0.00-0.029) 02/18/22 15:30 Results - Labs CBC & Chem 7: 02/18/22 15:30 02/18/22 15:30 Labs: Laboratory Last Values WBC 6.6 K/mm3 (4.5-11.0) 02/18/22 15:30 RBC 3.84 M/mm3 (3.65-5.03) 02/18/22 15:30 Hgb 11.9 gm/dl (10.1-14.3) 02/18/22 15:30 Hct 36.3 % (30.3-42.9) 02/18/22 15:30 MCV 94 fl (79-97) 02/18/22 15:30 MCH 31 pg (28-32) 02/18/22 15:30 MCHC 33 % (30-34) 02/18/22 15:30 RDW 13.3 % (13.2-15.2) 02/18/22 15:30 Plt Count 263 K/mm3 (140-440) 02/18/22 15:30 Lymph % (Auto) 16.5 % (13.4-35.0) 02/18/22 15:30 [place] % (Auto) 7.4 % (0.0-7.3) H 02/18/22 15:30 Eos % (Auto) 0.6 % (0.0-4.3) 02/18/22 15:30 Baso % (Auto) Battery Stacker 02/18/22 15:30 Lymph # (Auto) 1.1 K/mm3 (1.2-5.4) L 02/18/22 15:30 [place] # (Auto) 0.5 K/mm3 (0.0-0.8) 02/18/22 15:30 Eos # (Auto) 0.0 K/mm3 (0.0-0.4) 02/18/22 15:30 Baso # (Auto) 0.0 K/mm3 (0.0-0.1) 02/18/22 15:30 Add Manual Diff Complete 02/18/22 15:30 Total Counted 100 02/18/22 15:30 Seg Neutrophils % 75.2 % (40.0-70.0) H 02/18/22 15:30 Seg Neuts % (Manual) 79.0 % (40.0-70.0) H 02/18/22 15:30 Band Neutrophils % 0 % 02/18/22 15:30 Lymphocytes % (Manual) 16.0 % (13.4-35.0) 02/18/22 15:30 Reactive Lymphs % (Man) 1.0 % 02/18/22 15:30 Monocytes % (Manual) 4.0 % (0.0-7.3) 02/18/22 15:30 Eosinophils % (Manual) 0 % (0.0-4.3) 02/18/22 15:30 Basophils % (Manual) 0 % (0.0-1.8) 02/18/22 15:30 Metamyelocytes % 0 % 02/18/22 15:30 Myelocytes % 0 % 02/18/22 15:30 Promyelocytes % 0 % 02/18/22 15:30 Blast Cells % 0 % 02/18/22 15:30 Nucleated RBC % Not Reportable 02/18/22 15:30 Seg Neutrophils # 4.9 K/mm3 (1.8-7.7) 02/18/22 15:30 Seg Neutrophils # Man 5.2 K/mm3 (1.8-7.7) 02/18/22 15:30 Band Neutrophils # 0.0 K/mm3 02/18/22 15:30 Lymphocytes # (Manual) 1.1 K/mm3 (1.2-5.4) L 02/18/22 15:30 Abs React Lymphs (Man) 0.1 K/mm3 02/18/22 15:30 Monocytes # (Manual) 0.3 K/mm3 (0.0-0.8) 02/18/22 15:30 Eosinophils # (Manual) 0.0 K/mm3 (0.0-0.4) 02/18/22 15:30 Basophils # (Manual) 0.0 K/mm3 (0.0-0.1) 02/18/22 15:30 Metamyelocytes # 0.0 K/mm3 02/18/22 15:30 Myelocytes # 0.0 K/mm3 02/18/22 15:30 Promyelocytes # 0.0 K/mm3 02/18/22 15:30 Blast Cells # 0.0 K/mm3 02/18/22 15:30 WBC Morphology Not Reportable 02/18/22 15:30 WBC Morphology TNR 02/18/22 15:30 Hypersegmented Neuts Not Reportable 02/18/22 15:30 Hyposegmented Neuts Not Reportable 02/18/22 15:30 Hypogranular Neuts Not Reportable 02/18/22 15:30 Smudge Cells Not Reportable 02/18/22 15:30 Toxic Granulation Not Reportable 02/18/22 15:30 Toxic Vacuolation Not Reportable 02/18/22 15:30 Dohle Bodies Not Reportable 02/18/22 15:30 Pelger-Huet Anomaly Not Reportable 02/18/22 15:30 Shahid Rods Not Reportable 02/18/22 15:30 Platelet Estimate Consistent w auto 02/18/22 15:30 Clumped Platelets Not Reportable 02/18/22 15:30 Plt Clumps, EDTA Not Reportable 02/18/22 15:30 Large Platelets Not Reportable 02/18/22 15:30 Giant Platelets Not Reportable 02/18/22 15:30 Platelet Satelliting Not Reportable 02/18/22 15:30 Plt Morphology Comment Not Reportable 02/18/22 15:30 RBC Morphology Normal 02/18/22 15:30 Dimorphic RBCs Not Reportable 02/18/22 15:30 Polychromasia Not Reportable 02/18/22 15:30 Hypochromasia Not Reportable 02/18/22 15:30 Poikilocytosis Not Reportable 02/18/22 15:30 Anisocytosis Not Reportable 02/18/22 15:30 Microcytosis Not Reportable 02/18/22 15:30 Macrocytosis Not Reportable 02/18/22 15:30 Spherocytes Not Reportable 02/18/22 15:30 Pappenheimer Bodies Not Reportable 02/18/22 15:30 Sickle Cells Not Reportable 02/18/22 15:30 Target Cells Not Reportable 02/18/22 15:30 Tear Drop Cells Not Reportable 02/18/22 15:30 Ovalocytes Not Reportable 02/18/22 15:30 Helmet Cells Not Reportable 02/18/22 15:30 Ewing-Mcfarlan Bodies Not Reportable 02/18/22 15:30 [place] Rings Not Reportable 02/18/22 15:30 Tarkio Cells Not Reportable 02/18/22 15:30 Bite Cells Not Reportable 02/18/22 15:30 Crenated Cell Not Reportable 02/18/22 15:30 Elliptocytes Not Reportable 02/18/22 15:30 Acanthocytes (Spur) Not Reportable 02/18/22 15:30 Rouleaux Not Reportable 02/18/22 15:30 Hemoglobin C Crystals Not Reportable 02/18/22 15:30 Schistocytes Not Reportable 02/18/22 15:30 Malaria parasites Not Reportable 02/18/22 15:30 Jong Bodies Not Reportable 02/18/22 15:30 Hem Pathologist Commnt No 02/18/22 15:30 PT 13.3 Sec. (12.2-14.9) 02/18/22 15:30 INR 0.92 (0.87-1.13) 02/18/22 15:30 APTT 26.7 Sec. (24.2-36.6) 02/18/22 15:30 Thrombin Time 17.8 Sec. (15.1-19.6) 02/18/22 15:30 Sodium 142 mmol/L (137-145) 02/18/22 15:30 Potassium 4.0 mmol/L (3.6-5.0) 02/18/22 15:30 Chloride 104.4 mmol/L (98-107) 02/18/22 15:30 Carbon Dioxide 26 mmol/L (22-30) 02/18/22 15:30 Anion Gap 16 mmol/L 02/18/22 15:30 BUN 11 mg/dL (7-17) 02/18/22 15:30 Creatinine 0.4 mg/dL (0.6-1.2) L 02/18/22 15:30 Estimated GFR > 60 ml/min 02/18/22 15:30 BUN/Creatinine Ratio 28 % 02/18/22 15:30 Glucose 86 mg/dL (65-100) 02/18/22 15:30 POC Glucose 87 mg/dL (70-105) 02/18/22 13:52 Hemoglobin A1c 5.1 % (4-6) 02/21/22 12:40 Calcium 9.7 mg/dL (8.4-10.2) 02/18/22 15:30 Total Bilirubin 0.20 mg/dL (0.1-1.2) 02/18/22 15:30 AST 31 units/L (5-40) 02/18/22 15:30 ALT 33 units/L (7-56) 02/18/22 15:30 Alkaline Phosphatase 105 units/L (35-129) 02/18/22 15:30 Total Creatine Kinase 231 units/L (30-135) H 02/18/22 15:30 CK-MB (CK-2) 3.6 ng/mL (0.0-4.0) 02/18/22 15:30 CK-MB (CK-2) Rel Index 1.5 (0-4) 02/18/22 15:30 Troponin T < 0.010 ng/mL (0.00-0.029) 02/18/22 15:30 Total Protein 8.9 g/dL (6.3-8.2) H 02/18/22 15:30 Albumin 4.0 g/dL (3.9-5) 02/18/22 15:30 Albumin/Globulin Ratio 0.8 % 02/18/22 15:30 Prealbumin 0.208 g/L (0.200-0.400) 02/21/22 05:18 Triglycerides 63 mg/dL (2-149) 02/21/22 05:18 Cholesterol 127 mg/dL (50-199) 02/21/22 05:18 LDL Cholesterol Direct 63 mg/dL (50-130) 02/21/22 05:18 HDL Cholesterol 53 mg/dL (40-59) 02/21/22 05:18 Cholesterol/HDL Ratio 2.39 % 02/21/22 05:18 Vitamin B12 1486 pg/mL (211-911) H 02/21/22 05:18 Folate 19.44 ng/mL (7.3-26.0) 02/21/22 05:18 TSH 2.760 mlU/mL (0.270-4.200) 02/21/22 05:18 Urine Color Yellow (Yellow) 02/18/22 08:58 Urine Turbidity Clear (Clear) 02/18/22 08:58 Specific [place] (Man) 1.010 (1.003-1.030) 02/18/22 08:58 Ur Protein (Man) Negative mg/dL (Negative) 02/18/22 08:58 Ur Ketones (Man) Negative (Negative) 02/18/22 08:58 Urine Bilirubin (Man) Negative (Negative) 02/18/22 08:58 Urine WBC (Auto) < 1.0 /HPF (0.0-6.0) 02/18/22 08:58 Urine RBC (Auto) 1.0 /HPF (0.0-6.0) 02/18/22 08:58 Urine RBC (Manual) Negative (Negative) 02/18/22 08:58 Urine Mucus Few /HPF 02/18/22 08:58 Urine Opiates Screen Negative 02/18/22 08:58 Urine Methadone Screen Negative 02/18/22 08:58 Ur Barbiturates Screen Negative 02/18/22 08:58 Ur Phencyclidine Scrn Negative 02/18/22 08:58 Ur Amphetamines Screen Negative 02/18/22 08:58 U Benzodiazepines Scrn Negative 02/18/22 08:58 Urine Cocaine Screen Negative 02/18/22 08:58 U Marijuana (THC) Screen Negative 02/18/22 08:58 Drugs of Abuse Note Disclamer 02/18/22 08:58 Syphilis IgG/IgM Ab Nonreactive (NonReactive) 02/21/22 05:18 SARS-CoV-2 (PCR) Negative (Negative) 02/21/22 10:12 Angel/IV: Voiding Method External Female Catheter Active Medications - Current Medications Current Medications: Generic Name Dose Route Start Last Admin Trade Name Freq PRN Reason Stop Dose Admin Acetaminophen 650 mg 02/18/22 19:09 Acetaminophen 325 Mg Tab PO Q4H PRN Pain, Mild (1-3) Albuterol 2.5 mg 02/18/22 19:09 Albuterol 2.5 Mg/3 Ml Nebu IH Q3HRT PRN Shortness Of Breath Aspirin 325 mg 02/19/22 10:00 02/21/22 09:21 Aspirin 325 Mg Tab PO 325 mg QDAY YANELIS Administration Atorvastatin Calcium 40 mg 02/20/22 22:30 02/20/22 22:19 Atorvastatin 20 Mg Tab PO 40 mg QHS YANELIS Administration Bisacodyl 10 mg 02/18/22 19:09 Bisacodyl 10 Mg Rect Supp MD QDAY PRN Constipation Magnesium Hydroxide 30 ml 02/18/22 19:09 Magnesium Hydroxide (Mom) Oral Liqd Udc PO Q4H PRN Constipation Metoclopramide HCl 10 mg 02/18/22 19:09 Metoclopramide 10 Mg Tab PO Q6H PRN Nausea And Vomiting Morphine Sulfate 1 mg 02/18/22 19:09 Morphine 2 Mg/1 Ml Inj IV Q14H PRN Pain , Severe (7-10) Ondansetron HCl 4 mg 02/18/22 19:09 Ondansetron 4 Mg/2 Ml Inj IV Q8H PRN Nausea And Vomiting Oxycodone/Acetaminophen 1 tab 02/18/22 19:09 Oxycodone /Acetaminophen 5-325mg Tab PO Q16H PRN Pain, Moderate (4-6) Promethazine HCl 25 mg 02/18/22 19:09 Promethazine 25 Mg Rect Supp MD Q6H PRN Nausea And Vomiting Sodium Chloride 10 ml 02/18/22 19:09 02/19/22 22:35 Sodium Chloride 0.9% 10 Ml Flush Syringe IV 10 ml PRN PRN Administration LINE FLUSH Nutrition/Malnutrition Assess - Dietary Evaluation Nutrition/Malnutrition Findings: Nutrition Notes Start: 02/19/22 10:55 Freq: Status: Active Protocol: Document 02/20/22 18:09 STEPHANIE (Rec: 02/20/22 18:23 STEPHANIE [id number]) Nutrition Notes Initial or Follow up Brief Note Current Diagnosis Hypertension,Stroke, Hyperlipidemia Other Pertinent Diagnosis L-Hemiparesis, GERD, Debility, Vascular Dementia, Cerebral Atherosclerosis. Current Diet Pureed Diet (since L 02/19), D Suppl (fropm B 02/21). Height 5 ft 4 in Weight 63.5 kg [place] Body Weight (kg) 54.54 BMI 24.0 Weight change and time frame No body weight change reported in 1 day. Weight Status Appropriate Subjective/Other Information RD consult for risk of malnutrition assessment. Diet advanced to PO, No reports available on Pt's PO intake of meals at the time, will assess at F/U. I will prescribe dietary supplements to compensate for possible poor or insufficient PO intake of meals durin LOS. AUTO SERVICER note on 02/19/22 13:25: Patient seen in room for skilled ST intervention after referral to assess swallowing safety and function. Patietn observed with trials of thin x2. Patient exhibited piecemeal deglutition, but no overt s/sx of aspiration. Puree trials x3 observed with patient exhibiting oral holding x1 of 5 secs and no overt s/sx of aspiration. Mech soft trial x1 with patient exhibiting prolonged mastication, piecemeal deglutition and cough after the swallow. Therapist recommends puree solids and thin liquids. - END OF NOTE. Pt is on Room Air, O2 sturation @ 99%, according to Physical Assessment History notes. Percent of energy/protein needs met: Prescribed Pureed Diet provides for energy/protein needs (1,804 Kcal/77 g) during LOS; additionally, Dietary Supplements will compensate for possible poor or insufficient PO intake of meals with 700 Kcal and 40 g of protein. #1 Nutrition Diagnosis Predicted suboptimal energy intake Etiology Possibly associated with CVA. As Evidenced by Signs and Symptoms Diet advanced to PO, No reports available on Pt's PO intake of meals at the time, will assess at F/U. Is patient on ventilator? No Is Patient Ambulatory and/or Out of Bed No REE-([facility]-confined to bed) 1427.100 Calculation Used for Recommendations [facility] Additional Notes Protein: 0.8-1 g/Kg ABW; 51-64 g/day. Fluids: 1 ml/Kcal, or as per MD. Nutrition Intervention Change Diet Order: Continue Pureed Diet as tolerated. Add Supplement/Snack (indicate name/kcal Start 8 fl oz Ensure Enlive; /protein ) BID. Provides kCal: 700 Provides Protein (gm) 40 Goal #1 Compensate, through dietary supplementation, for possible poor or insufficient PO intake of meals during LOS. Goal #2 Facilitate PO intake of meals with elemental, textural, or mechanical modification during LOS. Goal #3 Adjust the dietary intervention to better serve Pt's needs and clinical conditions during LOS. Follow-Up By: 02/27/22 Additional Comments Continue monitoring food tolerance, %PO intake of meals , dietary supplements, and BM.
--- NOTE | 2022-02-22 09:49 | Magnetic Resonance Report ---
MRI BRAIN WITHOUT CONTRAST INDICATION / CLINICAL INFORMATION: CVA. TECHNIQUE: Multiplanar, multisequence MR images of the brain were obtained. COMPARISON: Head CT on 02/18/2022 FINDINGS: BRAIN / INTRACRANIAL CONTENTS: No acute ischemia, acute hemorrhage, mass effect, midline shift, or hy drocephalus. There is severe chronic small vessel ischemic change in the cerebral white matter with central greater than peripheral volume loss. Tear are extensive foci of cerebellar and cerebral chron ic hemosiderin deposition most likely secondary to severe chronic microvascular angiopathy. There is a chronic lacunar infarct in the left inferior cerebellum. CRANIOCERVICAL JUNCTION: No significant abnormality. VASCULAR FLOW-VOIDS: No significant abnormality. ORBITS: No significant abnormality of visualized orbits. SINUSES / MASTOIDS: No significant abnormality of visualized sinuses and mastoid air cells. ADDITIONAL FINDINGS: None. IMPRESSION: 1. No acute findings. 2. Severe chronic microvascular angiopathic changes in the brain. Chronic infarct with chronic hemosi ambrosio deposition in the left inferior cerebellum. Signer Name: Ramirez Ozuna MD Signed: 02/22/2022 9:45 AM Workstation Name: [employer]
[2022-02-22] MEDS: ASPIRIN 325 MG TAB PO SCH (10:39)
--- NOTE | 2022-02-22 13:07 | Discharge Summary ---
Providers - Providers Date of Admission: 02/18/22 19:09 Date of discharge: 02/22/22 Attending physician: ROMELIA CHOI MD 02/18/22 19:09 Occupational Therapy Evaluate and Treat [CONS] Routine Comment: Reason For Exam: Neuro deficits Physical Therapy Evaluation and Treat [CONS] Routine Comment: Reason For Exam: Neuro deficits 02/18/22 19:10 Speech Therapy Evaluation and Treat [CONS] Routine Reason For Exam: swallow eval 02/19/22 09:25 Consult to Physician [CONS] Routine Comment: Consulting Provider: GEREMIAS FINK Physician Instructions: Reason For Exam: CVA Primary care physician: SHARRON RAMIREZ Hospitalization Reason for admission: Acute ischemic CVAruled out Condition: Stable Pertinent studies: Reviewed. Procedures: None. Hospital course: The patient is a 61 YO Female Custodial Facility Resident with Vascular Dementia, Cerebral Atherosclerosis, HTN, GERD, HLD, CVA with LHP on Antiplatelet therapy, Debility presents ED for evaluation. Patient has diminished cognition and is unable to provide history. Patient history provided by EMS staff, ED staff, as well as assisted facility staff. As per staff the patient experienced increased confusion and weakness today. EMS was notified and upon arrival the patient was found to have a presumed new focal neurologic deficit to the left lower extremity. A code stroke was called and the patient was transported to [facility] for further care and evaluation of the aforementioned symptoms. The patient was seen and evaluated in the emergency department. All lab and imaging studies reviewed. Patient found to have new focal neurologic deficit consistent with CVA. Patient admitted to medical floor and initiated on CVA protocol due to increased risk of worsening symptoms and for medical stabilization. No reports of fever, chills, chest pain, palpitation, productive cough, skin rash, trauma, recent contact, known exposure to COVID-19. Patient has diminished cognition at time of my evaluation and is unable to provide further history but has a positive gag reflex and is able to protect her airway without difficulty. Patient underwent CT head noncontrast, carotid Dopplers, and TTE that were found to be unremarkable. Neurology was consulted for further management. MRI brain without contrast was found to be unremarkable for acute ischemic CVA. Physical therapy and Occupational Therapy were consulted, they recommended that the patient return back to her facility (assisted facility) upon medical discharge. Patient is medically clear for discharge. Disposition: 01 HOME / SELF CARE / HOMELESS Final Discharge Diagnosis (Prints w/discharge instructions): Acute ischemic CVAruled out, prior CVA complicated by left hemiparesis, vascular dementia, cerebral atherosclerosis, hypertension, GERD, hyperlipidemia Time spent for discharge: 45 min Core Measure Documentation - Palliative Care Palliative Care/ Comfort Measures: Not Applicable - Core Measures Any of the following diagnoses?: history only Exam - Constitutional Vitals: Temp Pulse Resp BP Pulse Ox 97.8 F 103 H 18 155/91 97 02/22/22 07:59 02/22/22 12:00 02/22/22 07:59 02/22/22 07:59 02/22/22 12:00 General appearance: Present: no acute distress, well-nourished - EENT Eyes: Present: PERRL, EOM intact ENT: hearing intact, clear oral mucosa - Neck Neck: Present: supple, normal ROM - Respiratory Respiratory effort: normal Respiratory: bilateral: CTA - Cardiovascular Rhythm: regular Heart Sounds: Present: S1 & S2 - Extremities Extremities: no ischemia, pulses intact, pulses symmetrical, No edema, normal temperature, normal color Peripheral Pulses: within normal limits - Abdominal General gastrointestinal: Present: soft, non-tender, non-distended, normal bowel sounds Female genitourinary: Present: deferred - Rectal Rectal Exam: deferred - Integumentary Integumentary: Present: clear, warm, dry - Musculoskeletal Musculoskeletal: left sided weakness, generalized weakness - Psychiatric Psychiatric: appropriate mood/affect, cooperative - Allied Health Allied health notes reviewed: nursing, case management Plan Activity: advance as tolerated Diet: low salt Additional Instructions: The patient is a 61 YO Female Custodial Facility Resident with Vascular Dementia, Cerebral Atherosclerosis, HTN, GERD, HLD, CVA with LHP on Antiplatelet therapy, Debility presents ED for evaluation. Patient has diminished cognition and is unable to provide history. Patient history provided by EMS staff, ED staff, as well as assisted facility staff. As per staff the patient experienced increased confusion and weakness today. EMS was notified and upon arrival the patient was found to have a presumed new focal neurologic deficit to the left lower extremity. A code stroke was called and the patient was transported to [facility] for further care and evaluation of the aforementioned symptoms. The patient was seen and evaluated in the emergency department. All lab and imaging studies reviewed. Patient found to have new focal neurologic deficit consistent with CVA. Patient admitted to medical floor and initiated on CVA protocol due to increased risk of worsening symptoms and for medical stabilization. No reports of fever, chills, chest pain, palpitation, productive cough, skin rash, trauma, recent contact, known exposure to COVID-19. Patient has diminished cognition at time of my evaluation and is unable to provide further history but has a positive gag reflex and is able to protect her airway without difficulty. Patient underwent CT head noncontrast, carotid Dopplers, and TTE that were found to be unremarkable. Neurology was consulted for further management. MRI brain without contrast was found to be unremarkable for acute ischemic CVA. Physical therapy and Occupational Therapy were consulted, they recommended that the patient return back to her facility (assisted facility) upon medical discharge. Patient is medically clear for discharge. Care Plan Goals: Patient is medically clear for discharge. Assessment: The patient is a 61 YO Female Custodial Facility Resident with Vascular Dementia, Cerebral Atherosclerosis, HTN, GERD, HLD, CVA with LHP on Antiplatelet therapy, Debility presents ED for evaluation. Patient has diminished cognition and is unable to provide history. Patient history provided by EMS staff, ED staff, as well as assisted facility staff. As per staff the patient experienced increased confusion and weakness today. EMS was notified and upon arrival the patient was found to have a presumed new focal neurologic deficit to the left lower extremity. A code stroke was called and the patient was transported to [facility] for further care and evaluation of the aforementioned symptoms. The patient was seen and evaluated in the emergency department. All lab and imaging studies reviewed. Patient found to have new focal neurologic deficit consistent with CVA. Patient admitted to medical floor and initiated on CVA protocol due to increased risk of worsening symptoms and for medical stabilization. No reports of fever, chills, chest pain, palpitation, productive cough, skin rash, trauma, recent contact, known exposure to COVID-19. Patient has diminished cognition at time of my evaluation and is unable to provide further history but has a positive gag reflex and is able to protect her airway without difficulty. Patient underwent CT head noncontrast, carotid Dopplers, and TTE that were found to be unremarkable. Neurology was consulted for further management. MRI brain without contrast was found to be unremarkable for acute ischemic CVA. Physical therapy and Occupational Therapy were consulted, they recommended that the patient return back to her facility (assisted facility) upon medical discharge. Patient is medically clear for discharge. Follow up with: SHARRON RAMIREZ MD [Primary Care Provider] - 3-5 Days Prescriptions: AtorvaSTATin [Lipitor] 40 mg PO QHS #30 tablet amLODIPine 10 mg PO DAILY #30 tab Aspirin 81 mg PO DAILY #30 tab Pantoprazole 20 mg PO DAILY #30 tab
[2022-02-22] MEDS ORDERED: amLODIPine 10 MG TAB PO SCH (14:00)
[2022-02-22 19:46] VITALS: BP 136/84
== END 2022-02-22 21:22 | DRG 948 ==
LOC: ED 12:18 → 4A 19:09
PROVIDERS: ADMIT Internal Medicine; ATTEND Student in an Organized Health Care Education/Training Program
DX: R53.1 Weakness (principal); I69.354 Hemiplegia and hemiparesis following cerebral infarction affecting left non-dominant side; I10 Essential (primary) hypertension; I67.2 Cerebral atherosclerosis; K21.9 Gastro-esophageal reflux disease without esophagitis; Z20.822 Contact with and (suspected) exposure to COVID-19; Z99.3 Dependence on wheelchair; F17.200 Nicotine dependence, unspecified, uncomplicated; I25.2 Old myocardial infarction; F01.50 Vascular dementia, unspecified severity, without behavioral disturbance, psychotic disturbance, mood disturbance, and anxiety; R53.81 Other malaise; E78.2 Mixed hyperlipidemia; R26.81 Unsteadiness on feet; R13.10 Dysphagia, unspecified; R47.1 Dysarthria and anarthria; Z88.0 Allergy status to penicillin; Z82.49 Family history of ischemic heart disease and other diseases of the circulatory system; Z83.3 Family history of diabetes mellitus; Z79.82 Long term (current) use of aspirin
CPT/HCPCS: 36415; 70450; 70496; 70498; 70551; 80053; 80061; 80307; 81001; 82306; 82525; 82550; 82553; 82607; 82747; 82962; 83036; 84134; 84425; 84443; 84484; 85007; 85025; 85610; 85670; 85730; 86592; 93005; 93306; 93880; 99285; G0378; C8929; Q9967; U0003